=== PATIENT | female | born 1955 | race Caucasian/White ===

== ENCOUNTER 2018-01-01 14:38 | Emergency (ER) | payer BC, SELFPAY ==
[2018-01-01 14:39] VITALS: BP 117/70; PULSE 102; RESP 16; TEMP 37.3; O2SAT 99; BMI 20.5
[2018-01-01] MEDS: 0.9% Normal Saline 1,000 ML 1000 ML IV (15:29)
[2018-01-01 15:30] VITALS: BP 102/60; BP 112/59; BP 124/84; PULSE 85; PULSE 88; PULSE 95
[2018-01-01 15:39] LABS: Absolute Lymphocyte Count 1.89 X10^3/ul (0.83-4.51); Absolute Neutrophil Count 5.8 X10^3/uL (2.0-7.7); Basophil# 0.04 X10^3/uL; Basophil% 0.4 % (0-1); Eosinophil# 0.53 X10^3/uL; Eosinophils% 5.6 % (0-5); Hematocrit 37.8 % (37-47); Hemoglobin 12.2 g/dl (12.0-15.0); Lymphocyte # 1.89 X10^3/ul (4.0); Lymphocyte % 20.1 % (19-41); Mean Corp Hgb Conc 32.3 g/gl (32-36); Mean Corpuscular Hgb 28.6 pg (27.0-32.0); Mean Corpuscular Volume 88.5 fL (81-99); Mean Platelet Vol. 9.3 fl (6.2-12.0); Monocyte# 1.09 X10^3/uL; Monocyte% 11.6 % (0-10); Neutrophil # 5.82 X10^3/uL (2.7-7.7); Platelet Count 494 K/mm3 (150-450); RBC Distribution Width CV 13.6 % (11.6-14.6); RBC Distribution Width SD 43.6 fl (35.1-43.9); Red Blood Count 4.27 M/mm3 (4.2-5.4); White Blood Count 9.4 K/mm3 (4.4-11.0)
--- NOTE | 2018-01-01 15:40 | ED.VISSUMM ---
- ER Visit Summary Date of Service: 01/01/18 Chief Complaint: Weakness fatigue and diarrhea for 4 days History of Present Illness: The patient is a 62 F who has no significant past medical history nor does she have a doctor presents with generalized weakness fatigue and diarrhea for the past 4 days. She denies any ill contacts. Triage note was read. She has had intermittent diarrhea over a year not constant diarrhea for a year. She denies any blood or mucus in her diarrhea. She has not been on antibiotics recently. She denies fever, chills night sweats. She does complain of thirst, dry mouth and orthostatic symptoms. She also reports decreased urine output. She denies headache. She denies any ocular, visual or auditory symptoms. She denies any change in voice or difficulty swallowing. She denies any chest pain, palpitations or orthopnea. She denies shortness of breath, cough or dyspnea on exertion. She denies abdominal pain. She does complain of nausea without vomiting. She denies dysuria, frequency, urgency or hematuria. She reports decreased urine output. She denies any skin lesions. She reports a 5 pound weight loss since December 27. She lives with her cousin who states she is not as active and that her clothes are loose on her. She has no history of cancer. She is a non-smoker. She denies alcohol use. Physical Examination: Patient appears thin. HEENT exam is remarkable for dry mucosa and tongue. Trach is midline. Lungs are clear to auscultation. Heart is regular without murmur, gallop or rub. Abdomen is soft nontender. Bowel sounds are present normal. There is no CVA tenderness noted. She is alert oriented with a nonfocal neurologic exam. Test Results: CBC is unremarkable. BMP is marked for potassium at 3.0. Albumin is 2.8. Emergency Department Course and Treatment: Clinically she appears dehydrated. IV was established and she received 1 L of normal saline. Baseline blood work was obtained to assess renal function, electrolytes and rule out anemia since she appears to Even though she denies shortness of breath. Treatment Plan: Patient received a liter of normal saline. She received p.o. potassium, 50 mEq. She was referred to Dr. Schroeder. Disposition: Discharged to home Impression: 1. Diarrhea 2. Hypokalemia 3. Malnourished 4. Unintentional weight loss This note was generated with Dragon dictation software. It may contain incorrect words, spelling, and punctuation that were not noted in review of the chart prior to signing ED Disposition - Plan for ED Patient: Disposition: Home or Assisted Living Chief Complaint: Weakness Instructions: ED Vomiting Diarrhea Nonspecific Ad, ED Potassium Deficiency Referrals: Care Physician,No Primary [Primary Care Provider] - Anshu Schroeder MD [STAFF PHYSICIAN] - 1 Week if not improving
[2018-01-01 15:41] LABS: POSITIVE COUNT NO; POSITIVE DIFFERENTIAL NO; POSITIVE MORPHOLOGY NO
[2018-01-01 15:50] LABS: ALB/GLOB Ratio 0.6 RATIO (0.9-2.4); AST(SGOT) 12 U/L (15-37); Alanine Aminotransfer ALT/SGPT 13 U/L (13-56); Albumin, Serum 2.8 g/dL (3.2-5.0); Alkaline Phosphatase 80 U/L (45-117); Anion Gap 10 (5-15); BUN 9 mg/dL (7-18); BUN/Creat Ratio 11.4 RATIO (10-20); Calcium,Total 8.7 mg/dL (8.5-10.1); Chloride 102 mmol/L (98-107); Creatinine, Serum 0.79 mg/dL (0.55-1.02); EST Glomerular Filtration Rate 78 mL/min (>60); Est Glom Filt Rate - Afr Amer 95 mL/min (>60); Estimated Creatinine Clearance 51.32 ml/min; Globulin 4.4 g/dL (2.2-4.2); Glucose 106 mg/dL (74-106); Protein, Total 7.2 g/dL (6.4-8.2); Sodium Level 140 mmol/L (136-145)
[2018-01-01 16:41] VITALS: BP 128/66; PULSE 45; RESP 16; O2SAT 97
[2018-01-01 17:52] VITALS: PULSE 97; RESP 16; O2SAT 100
== END 2018-01-01 17:52 | disposition home or self-care (01) ==
PROVIDERS: Emergency Provider Emergency Medicine
DX: R19.7 Diarrhea, unspecified (principal); E87.6 Hypokalemia; E46 Unspecified protein-calorie malnutrition; R63.4 Abnormal weight loss; Z79.82 Long term (current) use of aspirin
CPT/HCPCS: 80053; 85025; 96360; 99284; J7030; A4216

== ENCOUNTER → 2018-01-04 15:20 | Outpatient (CLI) | payer BC, SELFPAY ==
[2018-01-04 18:35] LABS: ALB/GLOB Ratio 0.5 RATIO (0.9-2.4); AST(SGOT) 13 U/L (15-37); Alanine Aminotransfer ALT/SGPT 17 U/L (13-56); Albumin, Serum 2.3 g/dL (3.2-5.0); Alkaline Phosphatase 77 U/L (45-117); Anion Gap 9 (5-15); BUN 10 mg/dL (7-18); BUN/Creat Ratio 13.2 RATIO (10-20); Calcium,Total 8.2 mg/dL (8.5-10.1); Chloride 101 mmol/L (98-107); Creatinine, Serum 0.76 mg/dL (0.55-1.02); EST Glomerular Filtration Rate 82 mL/min (>60); Est Glom Filt Rate - Afr Amer 99 mL/min (>60); Globulin 4.4 g/dL (2.2-4.2); Glucose 104 mg/dL (74-106); Magnesium 2.1 mg/dL (1.6-2.6); Potassium 3.4 mmol/L (3.5-5.1); Prealbumin 5.9 mg/dL (20.0-40.0); Protein, Total 6.7 g/dL (6.4-8.2); Sodium Level 140 mmol/L (136-145); Thyroid Stim Hormone (TSH) 2.37 uIU/mL (0.358-3.74)
[2018-01-05 09:06] LABS: Vitamin B12 > 2000 pg/mL (211-911); Vitamin D,25 Hydroxy 36.7 ng/mL (29.95-100.01)
== END ==
PROVIDERS: Visit Provider Family Medicine
DX: E88.09 Other disorders of plasma-protein metabolism, not elsewhere classified (principal); E87.6 Hypokalemia; R19.7 Diarrhea, unspecified; R53.83 Other fatigue
CPT/HCPCS: 36415; 80053; 82306; 82607; 83735; 84134; 84443

== ENCOUNTER 2018-01-08 07:31 | Day surgery (SDC) | payer BC, SELFPAY ==
--- NOTE | 2018-01-08 | COLBX_PTH ---
PATIENT: JERSON MURPHY LOC: EN U#:[id number] AGE/SX: 62/F ROOM: RE01/08/[address]: Dr. Sha Salamanca MD : [id number] BED: DIS: 01/08/2018 SPEC #: [id number] RECD: 01/08/18 14:34 STATUS: VINNY HEMALATHA #: [id number] JESS: 01/08/18 00:[address]: Sha Salamanca DEPT: SURGICAL PATHOLOGY RECD BY: Tito Huffman ENTERED: 01/08/18 14:34 SP TYPE: COLON BX OTHR DR: Dr. Porfirio Donato MD Tissues: A - Ileum, NOS B - COLON BIOPSY C - Rectum, NOS Procedures: Surgery Specimen Level IV HEADER OPERATION: Colonoscopy, EGD PRE-OP DIAGNOSIS: Rectal bleeding; weight loss TISSUE SUBMITTED: A ? Terminal ileum biopsies, B ? Random colon biopsies, C ? Rectal polyp MICROSCOPIC DIAGNOSIS A. Terminal ileum, biopsy: Fragments of small intestinal mucosa, no pathologic diagnosis. B. Colon, random biopsy: Chronic active colitis. See microscopic description and comment. C. Rectal polyp, biopsy: Tubular adenoma arising in the background of chronic active colitis. SJ:helga 01/09/18 COMMENT B. The findings are consistent with inflammatory bowel disease (ulcerative colitis). Correlation with clinical, endoscopic findings and appropriate follow up are necessary. Case has been reviewed in consultation with Dr. Fernandez who concurs with the above diagnosis. IDC:AM MICROSCOPIC DESCRIPTION Slides are reviewed. B. The specimen shows fragments of colonic mucosa with acute and chronic inflammatory cell infiltrates in the lamina propria, cryptitis, crypt abscesses and glandular distortion. There is no evidence of granuloma or dysplasia. GROSS DESCRIPTION A - Received in fixative is one container labeled with the patient's name and designated terminal ileum biopsy. The specimen consists of multiple irregular fragments of light phillip soft tissue that in aggregate measure 1.5 x 0.3 x 0.1 cm. The specimen is totally submitted in one cassette. B - Received in fixative is one container labeled with the patient's name and designated random colonic biopsy. The specimen consists of multiple irregular fragments of light phillip soft tissue that in aggregate measure 1.5 x 0.5 x 0.1 cm. The specimen is totally submitted in one cassette. C - Received in fixative is one container labeled with the patient's name and designated rectal polyp. The specimen consists of a piece of phillip-pink polyp measuring 0.7 x 0.5 x 0.3 cm. The specimen is totally submitted in one cassette. / SJ:rg 01/08/18 TC:2 CPT: 78937 x3
[2018-01-08 07:53] VITALS: BP 99/52; PULSE 89; RESP 16; TEMP 37.3; O2SAT 100; BMI 18.9
--- NOTE | 2018-01-08 08:46 | PCM.OPRPT ---
Problem List (1) Positive fecal occult blood test Status: Acute (2) Anemia Status: Acute Qualifiers: Anemia type: unspecified type (3) Diarrhea Status: Acute Qualifiers: Qualified Code(s): R19.7 - Diarrhea, unspecified (4) Fatigue Status: Acute Qualifiers: Qualified Code(s): R53.83 - Other fatigue Report of Operation Date of Procedure: 01/08/18 Pre-Operative Diagnosis: Are 19.5 Hemoccult positive stools. D 64.9 anemia unspecified. R 19.7 diarrhea unspecified. R 53.83 fatigue Post-Operative Diagnosis: Same Surgery/Procedure Performed:: 1. Esophagogastroduodenoscopy. 2. Colonoscopy with polypectomy and random colonic biopsies and random terminal ileum biopsies Description of Surgical Findings:: Pancolitis consistent with ulcerative colitis from cecum to rectum sparing terminal ileum Description of Procedure: Patient was brought into the endoscopy suite. Back of her throat was sprayed with benzocaine spray. Bite-block was placed. Graded anesthesia was given. Olympus scope was inserted in the back of the oropharynx and directed down through the esophagus into the stomach and into the duodenum without difficulty operative findings: 1. Duodenum: Normal appearance no mass lesions no ulcerations. 2. Stomach: Normal appearance no mass lesions no ulcerations. 3. Esophagus: Normal appearance no mass lesions no signs of ulcerations. Upper scope was entirely normal. Colonoscope was then inserted into the rectum and directed through the sigmoid colon, descending colon, transverse colon, ascending colon, to the cecum, and into the terminal ileum. Operative findings: 1. Terminal ileum: Normal appearance biopsies were obtained the terminal ileum itself appeared normal and I do not think that there was any active inflammation here. 2. Cecum: Severe colitis identified random biopsies obtained 3. A sending colon: Severe colitis identified random colon biopsies obtained 4. Transverse colon: Severe colitis identified random colon biopsies obtained 5. Descending colon: Severe colitis identified random colon biopsies obtained 6. Sigmoid colon: Severe colitis identified random colon biopsies obtained 7. Rectum: Severe colitis identified polyp identified and removed with snare cautery technique and brought back to the channel the scope. It is obvious this patient has more than likely ulcerative colitis we are going to start her on Asacol and more likely have to obtain a GI consultation for further treatment down the road.
[2018-01-08 08:51] VITALS: BP 84/61; BP 99/52; PULSE 87; RESP 16; TEMP 36.6; O2SAT 96
[2018-01-08 08:55] VITALS: BP 89/51; BP 99/52; PULSE 80; RESP 16; O2SAT 97
[2018-01-08 09:00] VITALS: BP 88/63; BP 99/52; PULSE 80; RESP 16; O2SAT 96
[2018-01-08 09:05] VITALS: BP 107/72; BP 98/65; BP 99/52; PULSE 92; RESP 16; TEMP 36.8; O2SAT 98; O2SAT 99
[2018-01-08 10:12] VITALS: BP 99/52
== END 2018-01-08 10:13 | disposition home or self-care (01) ==
LOC: EN 07:32 → AC 07:37
PROVIDERS: Family Provider Family Medicine; PCP Family Medicine; Visit Provider Surgery
PROC: 0DJD8ZZ Inspection of Lower Intestinal Tract, Via Natural or Artificial Opening Endoscopic (ICD-10-PCS; CPT 45378; principal; 2018-01-08 08:25)
DX: D12.8 Benign neoplasm of rectum (principal); K52.9 Noninfective gastroenteritis and colitis, unspecified; D64.9 Anemia, unspecified; R19.5 Other fecal abnormalities; R19.7 Diarrhea, unspecified; R53.83 Other fatigue; E88.09 Other disorders of plasma-protein metabolism, not elsewhere classified; Z80.0 Family history of malignant neoplasm of digestive organs; Z79.82 Long term (current) use of aspirin
CPT/HCPCS: 43235; 45380; 88305; J7120

== ENCOUNTER → 2018-01-25 13:59 | Outpatient (CLI) | payer BC, SELFPAY ==
[2018-01-25 15:58] LABS: ALB/GLOB Ratio 0.8 RATIO (0.9-2.4); AST(SGOT) 10 U/L (15-37); Alanine Aminotransfer ALT/SGPT 19 U/L (13-56); Albumin, Serum 3.1 g/dL (3.2-5.0); Alkaline Phosphatase 58 U/L (45-117); Anion Gap 7 (5-15); BUN 28 mg/dL (7-18); BUN/Creat Ratio 38.7 RATIO (10-20); Calcium,Total 8.6 mg/dL (8.5-10.1); Chloride 106 mmol/L (98-107); Creatinine, Serum 0.72 mg/dL (0.55-1.02); EST Glomerular Filtration Rate 86 mL/min (>60); Est Glom Filt Rate - Afr Amer 104 mL/min (>60); Globulin 3.7 g/dL (2.2-4.2); Glucose 104 mg/dL (74-106); Protein, Total 6.8 g/dL (6.4-8.2); Sodium Level 142 mmol/L (136-145)
== END ==
PROVIDERS: Family Provider Family Medicine; PCP Family Medicine; Visit Provider Family Medicine
DX: E88.09 Other disorders of plasma-protein metabolism, not elsewhere classified (principal)
CPT/HCPCS: 36415; 80053; 84134

== ENCOUNTER → 2018-03-03 10:56 | Outpatient (CLI) | payer BC, SELFPAY ==
[2018-03-03 12:32] LABS: AST(SGOT) 21 U/L (15-37); Alanine Aminotransfer ALT/SGPT 30 U/L (13-56); Albumin, Serum 3.4 g/dL (3.2-5.0); Alkaline Phosphatase 91 U/L (45-117); Bilirubin, Direct 0.07 mg/dL (0.00-0.30); Globulin 3.8 g/dL (2.2-4.2); Lipase 151 U/L (73-393); Protein, Total 7.2 g/dL (6.4-8.2)
== END ==
PROVIDERS: Family Provider Family Medicine; PCP Family Medicine
DX: K51.90 Ulcerative colitis, unspecified, without complications (principal)
CPT/HCPCS: 36415; 80076; 83690

== ENCOUNTER 2018-04-13 22:57 | Emergency (ER) | payer BC, SELFPAY ==
[2018-04-13 22:58] VITALS: BP 142/87; PULSE 85; RESP 17; TEMP 37.4; O2SAT 98; BMI 21.7
--- NOTE | 2018-04-13 23:56 | ED.VISSUMM ---
- ER Visit Summary Date of Service: 04/13/18 Chief Complaint: Difficulty urinating History of Present Illness: The patient is a 62 F with a history of prior urinary retention who presents with difficulty voiding. She noted that it was difficult to void throughout the day and she was only able to go small amounts. Last time she was able to urinate at all was about 2-1/2 hours ago and that was only a small amount. She complains of worsening suprapubic abdominal pressure and pain. She has chronic diarrhea but review of systems otherwise negative. No fevers. 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 Physical Examination: Afebrile vitals are unremarkable moist mucous membranes Patient appears very uncomfortable Heart regular rate and rhythm Lungs are clear Abdomen soft she is tender to palpation lower abdomen and she is distended Alert Test Results: Not indicated Emergency Department Course and Treatment: Patient had a Gill catheter placed with marked relief of symptoms. She had about 1100 cc of urine out. Nursing did note bladder prolapse when they placed the catheter. Patient will be discharged with a leg bag. She was referred to urology. She understands to return for new or worsening symptoms and was discharged home. Treatment Plan: [] Disposition: Discharge Impression: Urinary retention This note was generated with [employer] dictation software. It may contain incorrect words, spelling, and punctuation that were not noted in review of the chart prior to signing ED Disposition - Plan for ED Patient: Chief Complaint: Complaint Referrals: Porfirio Donato MD [Primary Care Provider] -
--- NOTE | 2018-04-13 23:58 | ED.DEP ---
ED Disposition - Plan for ED Patient: Chief Complaint: Complaint Instructions: ED Retention Urinary Female Referrals: Porfirio Donato MD [Primary Care Provider] - Rocío Hilario MD [STAFF PHYSICIAN] -
== END 2018-04-14 00:33 | disposition home or self-care (01) ==
PROVIDERS: Emergency Provider Emergency Medicine; Family Provider Family Medicine; PCP Family Medicine
DX: R33.9 Retention of urine, unspecified (principal)
CPT/HCPCS: 51702; 99283

== ENCOUNTER → 2018-04-18 10:54 | Outpatient (CLI) | payer BC, SELFPAY ==
--- NOTE | 2018-04-18 10:57 | US_ITS ---
STUDY: RENAL ULTRASOUND - COMPLETE REASON FOR EXAM: Female, 62 years old. Urinary retention TECHNIQUE: Transverse and longitudinal imaging of the kidneys and bladder was obtained using real-time ultrasound. COMPARISON: None. FINDINGS: RIGHT KIDNEY: The right kidney is normal in location. The right kidney measures 10.0 x 3.7 x 4.5 cm. There is cortical thinning. The renal cortex measures 3-4 mm (obtained in the sagittal plane mid pole from the capsule to the pyramid- normal is greater than or equal to 6 mm). There is a cyst in the lower pole measuring 1.7 cm. There is no dilatation of the collecting system. LEFT KIDNEY: The left kidney is normal in location. The left kidney measures 10.3 x 4.5 x 4.1 cm. The renal cortex is normal in appearance. The renal cortex measures 8-9 mm (obtained in the sagittal plane mid pole from the capsule to the pyramid- normal is greater than or equal to 6 mm). There is no demonstrated renal mass. There is no dilatation of the collecting system. BLADDER: The urinary bladder is decompressed with a Gill catheter present. US/Kidney and Bladder IMPRESSION: The right kidney is small with cortical thinning. The left kidney is normal in size. There is no hydronephrosis bilaterally. Electronically Signed: Jessica Hale MD at 0:04 EDT Tel Direct: [phone], Service support ,
== END ==
LOC: US 10:56
PROVIDERS: Family Provider Family Medicine; PCP Family Medicine; Visit Provider Urology
DX: R33.9 Retention of urine, unspecified (principal)
CPT/HCPCS: 76770

== ENCOUNTER 2018-12-19 00:41 | Emergency (ER) | payer BC, SELFPAY ==
[2018-12-19 00:44] VITALS: BP 152/91; PULSE 89; RESP 16; TEMP 37.2; O2SAT 98; BMI 23.1
--- NOTE | 2018-12-19 01:52 | ED.VISSUMM ---
- ER Visit Summary Date of Service: 12/19/18 Chief Complaint: Vaginal bleeding History of Present Illness: The patient is a 63 F who presents with vaginal bleeding onset yesterday. Patient had a pessary placed 2 months ago for bladder prolapse making it difficult for her to urinate on her own. Yesterday she began having vaginal bleeding. She saw her doctor and the pessary was removed. At that point the bleeding had stopped. However earlier this evening it started up again. Patient states it is bright red, copious, and it feels like she is urinating. She denies any pain. She denies any dizziness or lightheadedness. She is just concerned about the bleeding. 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 She is on Humira and prednisone. No blood thinners at this time. Physical Examination: Patient is well-nourished well-developed lying in bed in no distress. Skin is warm and dry, pink. Patient has bright red blood coming from her vagina. On examination, bladder is prolapsed. Reducing it through the vagina results and bright red blood coming out. Speculum exam shows large amount of bright red blood and clots. After suctioning the mouth, there is a small laceration noted on the right mid vaginal wall with no active bleeding. Questionable if this is also a fistula. No obvious source of the brisk bleeding noted and after suctioning, bleeding stopped. No lacerations noted to the external genitalia. Test Results: Abnormal Lab Results 12/19/18 02:40 Hgb 11.8 L Hct 36.9 L Emergency Department Course and Treatment: Patient presented with heavy vaginal bleeding, bright red in color. No external lesions noted to explain the bleeding. During the speculum exam, large amount of red blood and clots were suctioned and removed from the vaginal vault. Afterwards, bleeding stopped. There was one small area that looked concerning for a laceration on the right vaginal wall, however no blood was noted coming from it. There was no other obvious source of the bleeding. Once the vaginal vault was evacuated of blood and clots, patient had no further bleeding. H&H was performed to establish a baseline in case patient has recurrence of bleeding. Patient was monitored for a period of time and use the bathroom twice during this period of time and had no further bleeding. She is going to follow-up with her doctor tomorrow for a reevaluation. She will return if any recurrence of the heavy bleeding. Patient discharged home in improved condition. Treatment Plan: [] Disposition: [] Impression: Vaginal bleeding, suspected vaginal tear from pessary This note was generated with [employer] dictation software. It may contain incorrect words, spelling, and punctuation that were not noted in review of the chart prior to signing ED Disposition - Plan for ED Patient: Disposition: Home or Assisted Living Referrals: Porfirio Donato MD [Primary Care Provider] -
[2018-12-19 04:29] LABS: Hematocrit 36.9 % (37-47); Hemoglobin 11.8 g/dl (12.0-15.0)
--- NOTE | 2018-12-19 04:44 | ED.RN ---
SEE DOWNTIME PAPERWORK FROM 0200 UNTIL [id number]
== END 2018-12-19 03:07 | disposition home or self-care (01) ==
PROVIDERS: Emergency Provider Emergency Medicine; Family Provider Family Medicine; PCP Family Medicine
DX: N93.9 Abnormal uterine and vaginal bleeding, unspecified (principal); K51.90 Ulcerative colitis, unspecified, without complications; Z79.52 Long term (current) use of systemic steroids; Z79.899 Other long term (current) drug therapy
CPT/HCPCS: 85014; 85018; 99281

== ENCOUNTER 2018-12-19 08:46 | Emergency (ER) | payer BC, SELFPAY ==
[2018-12-19 00:44] VITALS: BMI 23.1
[2018-12-19 08:47] VITALS: BP 134/103; PULSE 88; RESP 16; TEMP 36.7; O2SAT 97; BMI 22.8
[2018-12-19 09:18] LABS: Hematocrit 34.7 % (37-47)
--- NOTE | 2018-12-19 10:51 | ED.DCSUM_ITS ---
History of Present Illness Chief Complaint: Vag Bleeding Informant: Patient Onset: Today Context: Sudden Onset - when got up from toilet and using it this AM Timing: Continuous Quality: bleeding and clots Location: vaginal Current Severity: Severe Maximum Severity: Severe Worsened by: nothing in particular Relieved by: nothing Associated Symptoms: none. no pain. Narrative: After having spontaneous onset of vaginal bleeding and then having her pessary removed a couple days ago in the office by Dr. Hilario, patient was seen here last night for heavy vaginal bleeding. It stopped and was discharged home after seeing a laceration. She states she tried to see her urologist today but she was unavailable and out of the office so she was directed by office staff to come to the emergency department. She has no pain. She feels malaise but has no other specific new symptoms. - Past Medical History (1) Anemia Status: Chronic Past Medical History - Allergies and Home Meds Allergies/Adverse Reactions: Allergies codeine Allergy (Verified 12/19/18 08:49) Hives Penicillins [PCN] Allergy (Verified 12/19/18 08:49) Hives Primary Care Physician: Porfirio Donato MD [Primary Care Provider] - Ruthie Connell MD [STAFF PHYSICIAN] - As soon as possible Surgical History: hysterectomy, - - Bladder sling Lives: Alone Smoking Status: Current every day smoker Review of Systems General: Reports: Malaise. Denies: Chills, Fever, Sweats Eyes: Denies: Visual changes - bilaterally, Diplopia ENT: Denies: Rhinorrhea, Sore throat Cardiovascular: Denies: Chest pain, Palpitations Respiratory: Denies: Dyspnea, Cough, Dyspnea on exertion Gastrointestinal: Denies: Abdominal pain, Nausea, Vomiting, Diarrhea, Melena, Hematochezia Genitourinary: Reports: - - Vaginal bleeding. Denies: Dysuria, Hematuria, Frequency Musculoskeletal: Denies: Back pain, Extremity Pain Skin: Denies: Rash, Wounds Neurological: Denies: Headache, Weakness, Numbness Physical Exam Vital Signs/Narrative: Vital Signs Temp Pulse Resp BP Pulse Ox 12/19/18 08:47 98.1 F 88 16 134/103 H 97 Inital Vital Signs reviewed: Yes General: Well nourished, Well developed, No Acute Distress Head: Normocephalic, Atraumatic Eyes: Perrl, EOMI ENT: Moist mucous membranes, No rhinorrhea Neck: Supple, Nontender Cardiovascular: Regular rate, Regular rhythm, No murmurs Respiratory: No distress, CTA bilaterally, Chest nontender Abdomen: Soft, Nontender, Nondistended, Normal bowel sounds : - - Vaginal vault full of blood and clots. It was evacuated using Yankauer suction and large cotton swabs. It eventually became evident that there was a small 0.5 cm mucosal laceration in the right mid-deep vaginal vault that had arteriolar bleeding present and active. Back: Nontender, Normal Inspection Extremities: Nontender, No edema Skin: Normal color, No rash Neurological: Alert, Oriented x3, Cranial nerves II-XII grossly intact, Normal Strength, Normal Sensation Psychological: Normal Mood, - - Anxious Diagnostic/Tx/Re-eval Laboratory Tests 12/19/18 12/19/18 Range/Units 14:35 09:10 Hgb 10.5 L 11.0 L (12.0-15.0) g/dl Hct 33.3 L 34.7 L (37-47) % - Medical Decision Making I repeated her H&H, her hemoglobin went down to 0.8 g, her vital signs remained stable. During the initial pelvic exam, we used a new canister of sterile 1 inch plain gauze and pack the vaginal vault beyond the laceration, and left the string hanging out and observe the patient. Initially, it seemed to be stable and the gauze did not turn red/grossly bloody. I discussed with Dr. Connell who was on-call for unassigned gynecology, who advised that we could send the pa tient over to her office either tomorrow or today, if there is recurrent bleeding. When we stood the patient up, it was evident that the bleeding had restarted. Prior to being able to discharge her, she felt lightheaded. Therefore we kept her in the bed and I discussed with Dr. Connell who saw the patient in the emergency department and repaired the laceration successfully. I ordered an IV with a liter fluid bolus. Just after starting that, the patient was helped to a bedside commode where in the presence of nursing, she had a syncopal episode after feeling lightheaded. She was not hypotensive but she was pale. IV fluids were given and she was allowed to rest and she recovered from the event uneventfully otherwise. After the fluids we redrew her H&H, it is 10.5 which is down 0.5 g. This is reassuring, no blood transfusion will be indicated. We did orthostatics and she was lightheaded and a borderline positive with regards to her blood pressure dropping 20 points systolic. She was given another bag of IV fluids, she felt better, and was discharged home, she is following up in the office tomorrow. Her bleeding remained well controlled after being sutured. ED Disposition - Plan for ED Patient: Disposition: Home or Assisted Living Diagnosis: Vaginal laceration, Orthostatic syncope Instructions: VAGINAL TEAR (Non-obstetric) Referrals: Ruthie Connell MD [STAFF PHYSICIAN] - 1 Day Rocío Hilario MD [STAFF PHYSICIAN] - Keep Khris appointment
[2018-12-19 11:28] VITALS: BP 113/76; PULSE 76; RESP 18; O2SAT 100
--- NOTE | 2018-12-19 11:29 | ED.RN ---
ATTEMPTED TO D/C PT. PT HAS BLOOD CLOTS COMING OUT OF HER VAGINA AND REPORTS BEING LIGHT HEADED. PT LAID BACK DOWN AND DR. STALEY INFORMED.
--- NOTE | 2018-12-19 11:45 | NURSING ---
DR CAMPUZANO WITH PATIENT
[2018-12-19] MEDS: 0.9% Normal Saline 1,000 ML 999 ML IV ×2 (12:00→14:58)
[2018-12-19 14:46] VITALS: BP 101/66; BP 111/75; BP 91/64; PULSE 66; PULSE 89; PULSE 98; RESP 17; O2SAT 97
[2018-12-19 14:53] LABS: Hematocrit 33.3 % (37-47); Hemoglobin 10.5 g/dl (12.0-15.0)
[2018-12-19 17:04] VITALS: BP 125/67; PULSE 78; RESP 16; O2SAT 97
--- NOTE | 2018-12-19 17:43 | HP.PCM_ITS ---
History of Present Illness Date of Admission: 12/19/18 Chief Complaint: vaginal bleeding The patient is a 63 -year-old female who has a history of pelvic prolapse that was seeing Dr. Hilario. She had a pessary placed and was doing well w/ it then started some bleeding on 12/17/18 and went to her office. Dr. Hilario removed pessary and the patient reported that she was told she didn't have any lacerations or active bleeding. The patient was then fine when about her normal activities, when she got home from work last night she had bright red vaginal bleeding. She went to the emergency room and was evaluated and found to be stable and was sent home. However, early this morning the bright red bleeding returned and seemed to be increased and the patient saturated through her underclothing and it was running down her legs and she returned to the emergency room. The emergency room physician then packed the patient's vagina lately and she expelled the vaginal packing with the clot. I was then called to evaluate the patient. patient states she is very tired and hungry. She denies any fevers or chills. She denies any for sexual activity that would've caused a vaginal laceration. She denies any dysuria or hematuria. I was asked to consult and treat the patient by Dr. Benitez in the emergency room physician. I had a [id number] conversation with him after the evaluation about the follow-up and plan for this patient after discharge. [] Past Medical History Past Medical History (Chronic Problems): Chronic Problems (Last Reviewed 01/15/18 @ 15:03 by Ju Bullock) Anemia (Chronic) Medical History: Medical History (Last Reviewed 01/15/18 @ 15:03 by Ju Bullock) Hx of hysterectomy (Acute) Z90.710 2009 Anemia (Chronic) D64.9 Abdominal pain (Acute) R10.9 Positive fecal occult blood test (Acute) R19.5 Hypoalbuminemia (Acute) E88.09 Blood in stool (Acute) K92.1 Family history of colon cancer (Acute) Z80.0 uncle- father's side Rectal bleeding (Acute) K62.5 Fatigue (Acute) R53.83 Hypokalemia (Acute) E87.6 Diarrhea (Acute) R19.7 Allergies codeine Allergy (Verified 06/26/19 08:49) Hives Penicillins [PCN] Allergy (Verified 12/19/18 08:49) Hives Home Medications: Ambulatory Orders Medication Instructions Recorded cholecalciferol (vitamin D3) 2,000 2,000 unit PO QDAY 01/05/18 unit capsule mecobalamin (vitamin B12) 5,000 5,000 mcg PO DAILY 01/05/18 mcg disintegrating tablet multivitamin tablet 1 tab PO QAM 01/05/18 Adalimumab [Humira] 40 mg SUBCUT QWEEK 12/19/18 Prednisone 5 mg PO DAILY 12/19/18 Surgical History: Surgical History (Last Reviewed 01/15/18 @ 15:03 by Ju Bullock) Hx of tonsillectomy (Acute) Z90.89 Hx of nasal polypectomy (Acute) Z98.890, Z87.09 2003 History of bladder repair surgery (Acute) Z98.890 2009 Surgical History: hysterectomy, - - Bladder sling Lives: Alone Smoking Status: Current every day smoker Review of Systems Constitutional: Denies: Anorexia, Chills, Fever Cardiovascular: Reports: Light Headedness - with standing. Denies: Chest Pain, Edema Respiratory: Denies: Shortness of Breath Gastrointestinal: Denies: Abdominal Pain Genitourinary: Reports: Retention - not acute. Denies: Dysuria, Frequency, Hematuria, Hesitancy, Urgency Gynecological: Denies: Vaginal discharge, Vaginal itching Hematologic/ Lymphatic: Denies: Anemia, Easy Bruising, Easy Bleeding, Petechiae VTE Information - Inpt Only VTE Present on Admission: No VTE Pharm Prophylaxis ordered?: No - Physical Exam General: Alert, Cooperative, No apparent distress Abdomen: Soft, Non-Distended, - - GYN_normal external genitalia. Attenuated perineal body. Normal mons pubis. normal urethra without caruncle. Cervix and uterus are surgically absent. No adnexal masses or tenderness. Vagina shows flattened rugae with small amount of blood in the vault when I examine her. There is approximately a 0.5 cm laceration on the left vaginal sidewall at 9:00 skilled nursing up the vagina that's oozing slowly some dark red blood. Remainder the vaginal cuff is intact. Extremities: No edema Skin: No rashes Psych/Mental Status: Normal Affect, Appropriate Vital Signs Temp Pulse Resp BP Pulse Ox 98.1 F 78 16 125/67 H 97 12/19/18 08:47 12/19/18 17:04 12/19/18 17:04 12/19/18 17:04 12/19/18 17:04 Oxygen Delivery Method Room Air Weight: 49.442 kg Body Mass Index (BMI) 22.8 Laboratory Tests Past 24 Hrs 12/19/18 12/19/18 09:10 14:35 Hgb 11.0 L 10.5 L Hct 34.7 L 33.3 L Assessment/Plan All Active Problems (Last Reviewed 01/15/18 @ 15:03 by Ju Bullock) Vaginal laceration (Acute) Orthostatic syncope (Acute) Hx of tonsillectomy (Acute) Hx of nasal polypectomy (Acute) History of bladder repair surgery (Acute) Hx of hysterectomy (Acute) Abdominal pain (Acute) Positive fecal occult blood test (Acute) Hypoalbuminemia (Acute) Blood in stool (Acute) Family history of colon cancer (Acute) Rectal bleeding (Acute) Fatigue (Acute) Hypokalemia (Acute) Diarrhea (Acute) 63-year-old female with vaginal laceration likely from pessary. She's failed conservative therapy with pressure and packing. At this point I discussed with the patient that I recommend placing a suture over the area. Patient is in agreement with plan. In addition, she has some packing placed and will require follow-up in my office tomorrow. She may return or call if bleeding increases acutely, but it seems to our to be significantly slowed from the packing that was done previously. Patient is in agreement comfortable with the plan. I would recommend she avoid heavy lifting for the next 48 hours.
--- NOTE | 2018-12-19 17:57 | OP.PCM_ITS ---
Report of Operation Date of Procedure: 12/19/18 Pre-Operative Diagnosis: vaginal laceration with acute vaginal bleeding Post-Operative Diagnosis: same Surgery/Procedure Performed:: vaginal laceration repair instant powder supervisor: None Type of Anesthesia:: Local Special Medications: none Specimen's removed: none Drains: none Estimated Blood Loss (mL): 0 Fluids Replaced: 0 Description of Procedure: the patient was seen in the emergency room. 0.5 cm vaginal laceration was iden tified. With the speculum in the vagina, 1 cc of 1% Xylocaine without epinephrine solution was injected into the area. A 3-0 Vicryl Rapide was then used to oversew the area with the single bejpsc-[id number] stitch. Hemostasis was assured. One bottle of half-inch plain gauze packing was placed in the vagina. The patient tolerated the procedure well. She is to return to my office tomorrow for removing of the vaginal packing. Grafts/Implants Used: none - Complications none
== END 2018-12-19 17:06 | disposition home or self-care (01) ==
PROVIDERS: Emergency Provider Emergency Medicine; Family Provider Family Medicine; PCP Family Medicine
DX: R55 Syncope and collapse (principal); S31.41XD Laceration without foreign body of vagina and vulva, subsequent encounter; W26.9XXD Contact with unspecified sharp object(s), subsequent encounter
CPT/HCPCS: 57200; 51702; 85014; 85018; 96360; 96361; 99285; J7030; A4216

== ENCOUNTER 2019-01-03 17:54 | Emergency (ER) | payer BC, SELFPAY ==
[2019-01-03 17:55] VITALS: BP 133/92; PULSE 100; RESP 16; TEMP 36.9; O2SAT 99; BMI 22.8
--- NOTE | 2019-01-03 18:26 | ED.DEP ---
ED Disposition - Plan for ED Patient: Instructions: Caring for Your Leg Bag, Gill Catheter, Care Referrals: Porfirio Donato MD [Primary Care Provider] - Rocío Hilario MD [STAFF PHYSICIAN] - As Needed
--- NOTE | 2019-01-03 18:27 | ED.VISSUMM ---
- ER Visit Summary Date of Service: 01/03/19 Chief Complaint: [Requesting new Gill catheter] History of Present Illness: The patient is a 63 F [presents to the emergency department requesting a new catheter. Patient has history of urinary retention due to bladder prolapse. Patient states that the balloon broke today and her catheter fell out. Patient is requesting a new catheter be placed. Patient otherwise has no complaints. Patient has history of ulcerative colitis as well as history of hysterectomy and history of bladder suspension. Patient normally wears a pessary.] Physical Examination: [HEENT-PERRLA, EOMI. Cranial nerves II through XII grossly intact. TMs clear. Mucous membranes moist. No adenopathy. Cardiovascular-regular rate and rhythm without murmur or ectopy Lungs-clear to auscultation, chest wall stable without crepitus or subcu emphysema Abdomen-normoactive bowel sounds, soft, nontender, no rebound or rigidity, no peritoneal signs. Extremities-intact ?4, normal range of motion, normal pulses, atraumatic] Test Results: [None indicated Emergency Department Course and Treatment: [Gill catheter placed] Treatment Plan: [Follow up with urologist as needed] Disposition: [Discharged home stable condition] Impression: [Gill catheter replaced] This note was generated with Fitting[employer] dictation software. It may contain incorrect words, spelling, and punctuation that were not noted in review of the chart prior to signing ED Disposition - Plan for ED Patient: Instructions: Caring for Your Leg Bag, Gill Catheter, Care Referrals: Rocío Hilario MD [STAFF PHYSICIAN] - As Needed Porfirio Donato MD [Primary Care Provider] -
[2019-01-03 19:10] VITALS: BP 137/81; PULSE 84; RESP 18
== END 2019-01-03 19:15 | disposition home or self-care (01) ==
LOC: ED 18:45
PROVIDERS: Emergency Provider Emergency Medicine; Family Provider Family Medicine; PCP Family Medicine
DX: R33.8 Other retention of urine (principal); N81.10 Cystocele, unspecified
CPT/HCPCS: 51702; 99283

== ENCOUNTER → 2019-02-22 | Outpatient (CLI) | payer BC, SELFPAY | END | disposition home or self-care (01) | PROVIDERS: Family Provider Family Medicine; PCP Family Medicine; Referring Provider Otolaryngology; Visit Provider Otolaryngology | DX: B37.9 Candidiasis, unspecified (principal) | CPT/HCPCS: 87070; 87205 ==

== ENCOUNTER → 2020-01-28 | Outpatient (CLI) | payer BC, SELFPAY ==
--- NOTE | 2020-01-28 10:08 | NM_ITS ---
CLINICAL: 64-year-old female with reported history of low back discomfort and apparent sacral radiographic abnormality. THREE PHASE PELVIS - WHOLE BODY RADIONUCLIDE 99m Tc MDP BONE SCINTIGRAPHY COMPARISON: None available FINDINGS: Following the intravenous administration of 25.6 mCi of 99m Tc MDP, bone images reveal: 1. The flow and immediate static blood pool acquisitions of the pelvis demonstrate normal arterial and venous phase distribution of the radiopharmaceutical to the bilateral hemipelvis. 2. Delayed projections demonstrate focal increased uptake noted in the mid cervical spine posteriorly on the left, first lumbar vertebra posteriorly on the left, fifth lumbar vertebra posteriorly on the right, the left wrist, knees bilaterally, lateral glenohumeral compartment of the right shoulder. 3. A photopenic abnormality is demonstrated in the lateral proximal tibial metaphysis. 4. The remaining skeletal structures are scintigraphically unremarkable with normal-appearing renal images and urinary bladder activity identified. NM/Bone Scan Three Phase IMPRESSION: 1. Increased radiopharmaceutical concentration identified in the cervical, lumbar spine, left wrist, both knees, the right shoulder is most consistent with degenerative arthritis. 2. Photopenia defined in the lateral proximal tibial metaphysis may represent a component of avascular necrosis. Plain film radiography correlation is recommended. 3. Meticulous attention paid to the sacrum, coccyx demonstrates no evidence of trauma-fracture on the current examination. Electronically Signed: Geoff Hess DO at 22:54 EDT Tel , Service support ,
== END | disposition home or self-care (01) ==
LOC: NM 10:04
PROVIDERS: PCP Family Medicine; Referring Provider Nurse Practitioner Acute Care; Visit Provider Nurse Practitioner Acute Care
DX: M53.3 Sacrococcygeal disorders, not elsewhere classified (principal)
CPT/HCPCS: 78315

== ENCOUNTER 2020-08-12 08:57 | Outpatient (RCR) | payer BC, SELFPAY ==
--- NOTE | 2020-08-17 15:29 | HP.OTFCE_ITS ---
Floor (Occasional 1-33% of Day): 20# Floor (Frequent 34-66% of Day): 10# Floor (Constant 67-100% of Day): NA Floor PDL: Light Knee (Occasional 1-33% of Day): 20# Knee (Frequent 34-66% of Day): 10# Knee (Constant 67-100% of Day): NA Knee PDL: Light Waist (Occasional 1-33% of Day): 15# Waist (Frequent 34-66% of Day): 8# Waist (Constant 67-100% of Day): NA Waist PDL: Sedentary-Light Shoulder (Occasional 1-33% of Day): 15# Shoulder (Frequent 34-66% of Day): 8# Shoulder (Constant 67-100% of Day): NA Shoulder PDL: Sedentary-Light Overhead (Occasional 1-33% of Day): 10# Overhead (Frequent 34-66% of Day): 8# Overhead (Constant 67-100% of Day): 8# Overhead PDL: Sedentary Bending: Frequent Ability (34-66% of day) Squatting: Occasional Ability (1-33% of day) Kneeling: Frequent Ability (34-66% of day) Comments: with external support Reaching out: Frequent Ability (34-66% of day) Reaching up: Frequent Ability (34-66% of day) Sitting: Occasional Ability (1-33% of day) Comments: with shifting body weight Walking: Occasional Ability (1-33% of day) Standing: Occasional Ability (1-33% of day) Comments: with shifting body weight Duration Sedentary Sedentary Light Light Light Medium Medium Medium Heavy Very Heavy Heavy Occasional (0-33% of day) Frequent (34-66% of day) Constant (67-100% of day) 10 # Negligible Negligible 15 # 8 # Negligible 20 # 10# Negli. 35 # 18 # 7 # 50 # 25 # 10 # 75 # 100 # >100 # 38 # 50 # >50 # 15 # 20 # >20 # Height: 1.47 m Weight:: 53.524 kg Hand Dominance: Right Medical History Including Restrictions: Pt states she was in good health until she had pain. Pt states she was laid off in August from work and when she was called back to work, she had back pain and right leg pain. Pt states in November 2019 she went on short disability and transitioned fold skiver disability in Jan or Feb. Pt states she went to see Dr. Duong a care management specialist in October 2019. Dr. Duong did x-ray and MRI and was referred to pain mtg. Pt started seeing for pain mtg in Mar. and has had 3 sets of spine injections. Pt feels her last one was helpful. Pt states she did have physical therapy without success. pt states her urologist placed her on a 35# lift restriction due to her bladder procedure. Diagnoses: low back pain. right lumbar radiculopathy. bladder suspension sx. ulcerative colitis Symptoms: Back pain Pain: Pt states her current pain sitting 0/10. Pt states her pain increases with increase walking. States pain increases 4/10. pt states she does use ice to assist with decreasing inflamation. Work History: Pt states she has worked for [employer] for 8 years. 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 PT states she is requited to lift and states she lifts no more than 5-7# pt states she stands during her shifts other than a one 10 min break and 20 min break. Pt states her job does not have light duty. pt is concerned with returning to work and performing her job duties. Pt states prior to working at the above job she was working as a [employer] business and worked there for 8-9 years. pt states she was required to stand during her hours worked pt was working full-time. 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 Behavioral: Pt cooperative throughout assessment. ADLS: Pt states she lives with her cousin in a two-story home with 2 entry steps no rails. pt states her bedroom is on 2nd floor (16 steps with one rail) pt states she has no trouble with stairs. Pt states she uses a walk-in shower and 2 grab bars in shower. pt states she can shower ind. Pt states she is ind. with getting dressed. Pt states she does not clean. pt states she does cook. Pt states her cousin has horses but does not help with this since her back started hurting. Pt states she and her cousin go grocery shopping together. Pt states she drives ind. pt states she can wash dishes and can cook light meals. Pt has grown children one out of states and the other out of town. Pt reports prior to hurting her back she would do all daily tasks with bathing/dressing/meal prep/yard work and helped her cousin with the horses. Pt would like to get her pain under control to return to her PLOF. Physical Examination: pt demo with poor posture, shoulders rolled forward and neck forward. Pt with thoracic curvature. ROM: pt demo with bilateral shoulder flexion to 160* as shoulders are forwared and this limits UE ROM. pt demo with LE ROM WNL. pt demo with lumbar flexion/ext/lateral and and side bend WFL. Strength: MMT BUE 4+/5. MMT hip flex right 4/5 left 4+/5. Right knee ext/flex 4+/5 left 4+/5. hip adduction 4+/5 abd 4+/5 Right Manager Biostatistics Strength Average: 30.00 Right Manager Biostatistics Strength Percentile: 4% Left Manager Biostatistics Strength Average: 31.66 Left Manager Biostatistics Strength Percentile: 7% Right Lateral Pinch Average: 4.00 Right Lateral Pinch Percentile: <10% Left Lateral Pinch Average: 6.33 Left Lateral Pinch Percentile: <10% Right Tripod Pinch Average: 4.00 Right Tripod Pinch Percentile: <10% Left Tripod Pinch Average: 3.66 Left Tripod Pinch Percentile: <10% Comments: pt demo with fair cut off saw grader/pinch for age Sensation: denies Fine Motor: 9-hole peg test. right 21.12 sec.= 50%. left 18.95 sec. = 90%. pt demo with good fine motor skills Balance: no loss of balance noted during assessment Bending: pt demo the ability to bend forward three times, ten times and ten times rapidly. pt states she was getting right hip/leg pain 2/10. pt can bend forward on a frequent ability due to increase in pain. Squatting: pt demo the ability to squat three times and ten times. pt was unable to squat ten times rapidly due to a increase in right hip/leg pain 2/10. pt reported legs feel like rubber indicating fatigue of muscles. pt can squat on a occasional ability. Kneeling: pt demo the ability to kneel three times, ten times and ten times rapidly. Pt used external support. Pt can kneel on a frequent ability with external support. Reaching out/up: pt demo the ability to reach out/up three times. ten times and ten times rapidly while standing. pt can reach up/out on a frequent ability Walking: Pt demo the ability to ambulate a reciprocal step pattern. pain 1-2/10 on right thigh. Pt stateslegs feel like rubber. pt states she hasn?t been able to walk longer distances since October 2020. pt can ambulate on a occasional ability. Standing: pt demo the ability to stand for 5 min pt shifted body weight from side to side after 1 min of standing pt continued to stand and lifting feet off floor to shift weight. Sitting: pt demo the ability to sit for 40 min with no apparent or expressed discomfort. pt can sit on a frequent ability. Climbing Stairs: pt demo the ability to ascend/descend ten steps with a reciprocal step pattern with use of hand rail on right side. Floor Lift: Pt demo the ability to lift 20# from this level with good lifting mechanics. Knee Lift: Pt demo the ability to lift 20# from this level with good lifting mechanics. Waist Lift: Pt demo the ability to lift 15# from this level with good lifting mechanics. Shoulder Lift: Pt demo the ability to lift 15# from this level with good lifting mechanics. Overhead Lift: Pt demo the ability to lift 10# from this level with good lifting mechanics. Carrying: pt demo the ability to carry 20# for 40 feet with holding wt on right side of hip.
--- NOTE | 2020-08-17 15:29 | HP.OTFCE.D ---
FCE D/C Summary - Discharge JERSON MURPHY was seen for a one time visit for an FCE on 08/12/20 and is discharged.
== END 2020-08-12 19:00 | disposition home or self-care (01) ==
LOC: OT 08:57
PROVIDERS: PCP Family Medicine; Referring Provider Family Medicine; Visit Provider Family Medicine
DX: M54.16 Radiculopathy, lumbar region (principal)
CPT/HCPCS: 97750

== ENCOUNTER → 2020-08-20 14:59 | Outpatient (CLI) | payer BC, SELFPAY ==
[2020-08-20 17:58] LABS: T4 Free Direct 0.97 ng/dL (0.76-1.46); Thyroid Stim Hormone (TSH) 3.87 uIU/mL (0.358-3.74)
[2020-09-03 16:46] LABS: Anti-Thyroglobulin AB 9.2 IU/mL (0.0-0.9); Thyroglobulin RIA 17 ng/mL (.); Thyroid Peroxidase AB 35 IU/mL (0-34)
== END ==
PROVIDERS: PCP Family Medicine; Referring Provider Family Medicine; Visit Provider Family Medicine
DX: R94.6 Abnormal results of thyroid function studies (principal)
CPT/HCPCS: 36415; 84432; 84439; 84443; 86376; 86800

== ENCOUNTER → 2020-08-28 14:39 | Outpatient (CLI) | payer BC, SELFPAY ==
--- NOTE | 2020-08-28 14:42 | US_ITS ---
STUDY: THYROID ULTRASOUND REASON FOR EXAM: Female, 64 years old. THYROID NODULE TECHNIQUE: Ultrasound evaluation of the thyroid was performed with real-time and static jensen-scale imaging. COMPARISON: None. FINDINGS: RIGHT LOBE: The right lobe of the thyroid gland measures 5.7 x 1.4 x 2.2 cm. There is a homogeneous echotexture. Several nodules, one of them is complex in nature measuring 1.8 x 1.1 x 2 cm and the second is solid in nature which is mildly hyper vascular measuring 2 x 1.6 x 1.7 cm. LEFT LOBE: The left lobe of the thyroid gland measures 4.9 x 1.4 x 1.7 cm. There is a homogeneous echotexture. Multiple tiny nodules, largest measuring 2 x 3 x 2 mm in the midpole region which is cystic in nature ISTHMUS: The isthmus measures 2 mm. The regional lymph nodes are normal. US/Thyroid IMPRESSION: Multiple nodules, predominantly cystic on the left however, solid and mildly hypervascular nodule in the right lobe as detailed above. This lesion would be amenable to ultrasound-guided FNA Electronically Signed: Roosevelt Ponce DO at 0:12 EST Tel , Service support ,
== END ==
PROVIDERS: PCP Family Medicine; Referring Provider Family Medicine; Visit Provider Family Medicine
DX: E04.1 Nontoxic single thyroid nodule (principal)
CPT/HCPCS: 76536

== ENCOUNTER → 2020-09-09 11:37 | Outpatient (CLI) | payer BC, SELFPAY ==
--- NOTE | 2020-09-09 11:38 | BI_ITS ---
MAMMOGRAPHY - BILATERAL SCREENING REASON FOR EXAM: Female, 64 years old. Routine annual screening examination. PERTINENT HISTORY: Non-contributory. TECHNIQUE: Digital bilateral breast valerie (3D mammographic acquisition) in the CC and MLO projections. 2-D mediolateral oblique (MLO) and craniocaudad (CC) views of both breasts were obtained. CAD: Full Field Digital Mammography with Computer Added Detection was performed. COMPARISON: Comparison is made with prior outside examination dated 05/23/2017. FINDINGS: Breast Composition: The breasts are extremely dense, which lowers the sensitivity of mammography. There are no dominant masses or suspicious calcifications. No other significant abnormalities are identified. There has been no significant change since the prior study. BI/SCRN MAMM (CAD)W/VALERIE BILAT IMPRESSION: Stable bilateral screening mammogram. Yearly follow-up mammogram recommended. (A) ASSESSMENT CATEGORY: BIRADS Category 1: Negative. A letter regarding these results will be sent to the patient by the facility within 30 days. Approximately 10% of breast cancers are not detected by mammography. A normal mammogram should not delay biopsy of a clinically suspicious abnormality. [id number] Electronically Signed: Byron Blanco MD at 13:55 EDT , Service support ,
--- NOTE | 2020-09-09 11:40 | BD_ITS ---
STUDY: DUAL ENERGY X-RAY ABSORPTIOMETRY / DXA REASON FOR EXAM: Female, 64 years old. [id number]. The patient is postmenopausal. Loss of height. TECHNIQUE: Bone Mineral Density (BMD) measurements of lumbar spine and bilateral hips were obtained. COMPARISON: None. FINDINGS: Lumbar Spine (L1-L4): g/cm2 (0.992) / T-score (-1.7) / Z-score (-0.1) Findings are suggestive of osteopenia with a moderate fracture risk. Left Femur Total: g/cm2 (0.673) / T-score (-2.7) / Z-score (-1.4) Left Femoral Neck: g/cm2 (0.713) / T-score (-2.3) / Z-score (-0.8) Right Femur Total: g/cm2 (0.619) / T-score (-3.1) / Z-score (-1.8) Right Femoral Neck: g/cm2 (0.709) / T-score (-2.4) / Z-score (-0.9) BD/Dexa Bone Density Study IMPRESSION: The patient is considered osteoporotic as outlined below according to World Steve Organization (WHO) criteria with a high fracture risk. Reference Information: The T-score is the number of standard deviations above or below the standard which is normal for young adults at their peak bone mineral density. The World Health Organization (WHO) interprets the T-scores as follows: Above -1 Normal bone density Between -1 and -2.5 Osteopenia Equal to / or below -2.5 Osteoporosis As a practical clinical guideline, osteopenia may be graded as follows: Mild -1 through -1.5 Moderate -1.6 through -2.0 Severe -2.1 through -2.4 The Z-score is the number of standard deviations above or below age-matched controls. A Z-score of less than -1.5 would be considered abnormal. References: 1. NIH Osteoporosis and Related Bone Diseases www osteo.org 2. International Society for Clinical Densitometry www iscd.org 3. National Osteoporosis Foundation www nof.org Electronically Signed: Byron Blanco MD at 15:15 EDT , Service support ,
== END ==
LOC: OPBD 11:38
PROVIDERS: PCP Family Medicine; Referring Provider Family Medicine; Visit Provider Family Medicine
DX: Z78.0 Asymptomatic menopausal state (principal); Z12.31 Encounter for screening mammogram for malignant neoplasm of breast
CPT/HCPCS: 77063; 77067; 77080

== ENCOUNTER → 2020-09-10 | Outpatient (CLI) | payer BC, SELFPAY ==
--- NOTE | 2020-09-10 | FLU_PTH ---
PATIENT: JERSON MURPHY LOC: [facility] U#:[id number] AGE/SX: 64/F ROOM: RE09/10/[address]: Dr. Tuan Portillo MD : 1955 BED: DIS: 09/10/2020 SPEC #: [id number] RECD: 09/10/20 18:06 STATUS: VINNY REZhang #: [id number] JESS: 09/10/20 00:[address]: Tuan Portillo DEPT: CYTOLOGY RECD BY: Tito Huffman ENTERED: 09/11/20 07:54 SP TYPE: Fluid OTHR DR: Dr. Porfirio Donato MD Tissues: A - Thyroid gland, NOS B - Thyroid gland, NOS Procedures: Special Stain Group II Surgery Specimen Level IV Cytospin Fluid HEADER OPERATION: Right thyroid FNA x2 PRE-OP DIAGNOSIS: Thyroid nodules TISSUE SUBMITTED: A - Right thyroid fluid for cytology, B - Right thyroid slides x8 DIAGNOSIS CYTOLOGY A. Right thyroid nodule fluid for cytology (cytospin and cell block): A few benign follicular cells and macrophages are noted. See comment. B. Right thyroid nodule, FNA (smears): Consistent with benign follicular/colloid nodule. Adequate for evaluation. ERNESTO:helga 09/14/2020 COMMENT A. The findings are suggestive of benign cyst contents. If this specimen is from the different nodule than the specimen B, then, the specimen is limited in evaluation due to lack of adequate number of follicular cells. Correlation with clinical, radiologic findings and appropriate follow up are necessary. CYTOLOGY STUDY Slides are reviewed. CYTOLOGY GROSS A - Received is 1 ml of red cloudy fluid labeled with the patient's name and and designated per the requisition as right thyroid. Submitted for cytology preparation including cell block. B - Received are eight smears labeled with the patient's name and designated per the requisition as right thyroid. Submitted for staining. / helga 09/11/2020 TC:5 CPT: 14960, 21732, 03301
[2020-09-10 14:14] VITALS: BMI 25.4
== END | disposition home or self-care (01) ==
LOC: LABSPEC 16:20
PROVIDERS: PCP Family Medicine; Referring Provider Surgery; Visit Provider Surgery
DX: E04.2 Nontoxic multinodular goiter (principal)
CPT/HCPCS: 88108; 88305; 88313

== ENCOUNTER → 2020-09-23 14:08 | Outpatient (CLI) | payer BC, SELFPAY ==
[2020-09-10 14:14] VITALS: BMI 25.4
[2020-09-23 18:01] LABS: Vitamin D,25 Hydroxy 46.8 ng/mL
[2020-09-23 18:10] LABS: ALB/GLOB Ratio 0.8 RATIO (0.9-2.4); AST(SGOT) 16 U/L (15-37); Alanine Aminotransfer ALT/SGPT 18 U/L (13-56); Albumin, Serum 3.3 g/dL (3.2-5.0); Alkaline Phosphatase 72 U/L (45-117); Anion Gap 6 (5-15); BUN 16 mg/dL (7-18); BUN/Creat Ratio 18.8 RATIO (10-20); Calcium,Total 8.6 mg/dL (8.5-10.1); Chloride 108 mmol/L (98-107); Creatinine, Serum 0.85 mg/dL (0.55-1.02); EST Glomerular Filtration Rate 71 mL/min (>60); Est Glom Filt Rate - Afr Amer 86 mL/min (>60); Globulin 4.4 g/dL (2.2-4.2); Glucose 109 mg/dL (74-106); Potassium 3.5 mmol/L (3.5-5.1); Protein, Total 7.7 g/dL (6.4-8.2); Sodium Level 139 mmol/L (136-145)
== END ==
PROVIDERS: PCP Family Medicine; Referring Provider Family Medicine; Visit Provider Family Medicine
DX: M81.0 Age-related osteoporosis without current pathological fracture (principal)
CPT/HCPCS: 36415; 80053; 82306

== ENCOUNTER → 2021-02-01 | Outpatient (CLI) | payer BC, SELFPAY ==
[2020-09-10 14:14] VITALS: BMI 25.4
== END | disposition home or self-care (01) ==
PROVIDERS: PCP Family Medicine; Referring Provider Family Medicine; Visit Provider Family Medicine
DX: Z20.822 Contact with and (suspected) exposure to COVID-19 (principal)
CPT/HCPCS: 87635; U0005; U0003

== ENCOUNTER → 2021-02-19 08:16 | Outpatient (CLI) | payer BC, SELFPAY ==
--- NOTE | 2021-02-19 08:18 | RAD_ITS ---
STUDY: X-RAY - LEFT KNEE REASON FOR EXAM: Female, 65 years old. KNEE PAIN TECHNIQUE: 4 view(s) of the knee. COMPARISON: None. FINDINGS: Normal visualized distal femur. Normal visualized proximal tibia and fibula. Normal proximal tibiofibular articulation. There is a bipartite type patella. Normal medial femorotibial compartment. Normal lateral femorotibial compartment. Normal patellofemoral articulation. Small joint effusion. RAD/Knee 4 or More Views IMPRESSION: Bipartite patella. Small joint effusion. Electronically Signed: Byron Blanco MD at 9:54 EDT , Service support ,
--- NOTE | 2021-02-19 08:19 | RAD_ITS ---
STUDY: X-RAY - RIGHT KNEE REASON FOR EXAM: Female, 65 years old. KNEE PAIN TECHNIQUE: 3 view(s) of the knee. COMPARISON: None. FINDINGS: Normal visualized distal femur. Normal visualized proximal tibia and fibula. Normal proximal tibiofibular articulation. Bipartite patella. Normal medial femorotibial compartment. Normal lateral femorotibial compartment. Normal patellofemoral articulation. Small joint effusion. RAD/Knee 4 or More Views IMPRESSION: Bipartite patella. Small joint effusion. Electronically Signed: Byron Blanco MD at 10:00 EDT , Service support ,
[2021-02-19 10:22] LABS: Absolute Lymphocyte Count 2.87 X10^3/uL (0.83-4.51); Absolute Neutrophil Count 3.4 X10^3/uL (2.0-7.7); Basophil# 0.05 X10^3/uL; Basophil% 0.7 % (0-1); Eosinophil# 0.23 X10^3/uL; Eosinophils% 3.1 % (0-5); Hematocrit 39.9 % (37-47); Hemoglobin 12.7 g/dL (12.0-15.0); Lymphocyte # 2.87 X10^3/ul (0.83-4.51); Lymphocyte % 38.5 % (19-41); Mean Corp Hgb Conc 31.8 g/dL (32-36); Mean Corpuscular Hgb 28.3 pg (27.0-32.0); Mean Corpuscular Volume 88.9 fL (81-99); Mean Platelet Vol. 11.8 fl (6.2-12.0); Monocyte# 0.91 X10^3/uL; Monocyte% 12.2 % (0-10); NRBC Flagged by Analyzer 0 % (0-5); Neutrophil # 3.38 X10^3/uL (2.7-7.7); Neutrophil % 45.4 % (47-70); Platelet Count 376 K/mm3 (150-450); RBC Distribution Width CV 15.6 % (11.6-14.6); RBC Distribution Width SD 50.9 fl (35.1-43.9); Red Blood Count 4.49 M/mm3 (4.2-5.4); White Blood Count 7.5 K/mm3 (4.4-11.0)
[2021-02-19 10:41] LABS: Vitamin B12 1494 pg/mL (211-911); Vitamin D,25 Hydroxy 62.3 ng/mL
[2021-02-19 10:50] LABS: ALB/GLOB Ratio 0.8 RATIO (0.9-2.4); AST(SGOT) 19 U/L (15-37); Alanine Aminotransfer ALT/SGPT 21 U/L (13-56); Albumin, Serum 3.6 g/dL (3.2-5.0); Alkaline Phosphatase 67 U/L (45-117); Anion Gap 8 (5-15); BUN 14 mg/dL (7-18); BUN/Creat Ratio 15.4 RATIO (10-20); Calcium,Total 8.7 mg/dL (8.5-10.1); Chloride 104 mmol/L (98-107); Creatinine, Serum 0.91 mg/dL (0.55-1.02); EST Glomerular Filtration Rate 66 mL/min (>60); Est Glom Filt Rate - Afr Amer 80 mL/min (>60); Globulin 4.3 g/dL (2.2-4.2); Glucose 106 mg/dL (74-106); Iron 51 ug/dL (50-170); Potassium 3.1 mmol/L (3.5-5.1); Protein, Total 7.9 g/dL (6.4-8.2); Sodium Level 141 mmol/L (136-145); T4 Free Direct 0.98 ng/dL (0.76-1.46); Thyroid Stim Hormone (TSH) 2.12 uIU/mL (0.358-3.74)
== END ==
LOC: MTLAB 08:17
PROVIDERS: PCP Family Medicine; Referring Provider Family Medicine; Visit Provider Family Medicine
DX: M81.0 Age-related osteoporosis without current pathological fracture (principal); E06.3 Autoimmune thyroiditis; K51.90 Ulcerative colitis, unspecified, without complications; M25.561 Pain in right knee; M25.562 Pain in left knee
CPT/HCPCS: 36415; 73564; 80053; 82306; 82607; 83540; 84439; 84443; 85025

== ENCOUNTER 2021-06-08 14:00 | Outpatient (RCR) | payer BC, SELFPAY ==
--- NOTE | 2021-03-08 14:51 | HP.PTEVAL_ITS ---
Patient's Visit Information JERSON MURPHY is a 65 year old F referred to Physical Therapy by Dr. Porfirio Donato MD with a diagnosis of R knee biparte patella. Date of Evaluation: 03/08/21 Physical Therapist: Freeman Kaminski DPT - Visit Plan Frequency: 2x /Week Duration: 4 Weeks Plan: Start with stretching ROM, (flexion, extension), quad strengthening/glute med strengthening. - Subjective Pt. is here today for her initial evaluation with diagnosis of Bipartite patella and knee pain. Pt. has this pathology in B knees, but is having most of her pain in her R knee. Pt. reports having increased pain at posterior medial aspect of her knee with flexion past ~85deg. Pt. reports not working currently. Pt. is having increased pain with walking, standing, squatting, and stair negotiation. Decreased pain: resting, ice. No lasting improvement noted. She denies N/T in either LE. Pt. is sleeping okay. Pt. reports no locking or giving out on her. Pt. is hopeful to decrease her pain in order to get back to all daily activities without limitations. She has been on medical leave from work since earlier this year. - Pain R knee Pain Intensity (Out of 10): 1 Pain Intensity Range: 0, 6 - Objective POSTURE: Pt. has slight flexed posture, normal knee positioning, slight wt. shift to L side. overall slight posture noted. PALPATION: Pt. has no anterior knee tenderness, but does pain at medial aspect of her popliteal fossa. Pt. reports pain in similar area with increased knee flexion. NEURO: normal throughout. ROM: R knee 0-0-105deg increase in symptoms after ~90deg of flexion. No pain with extension with over pressure. Pt. has normal L knee ROM. MMT: Pt. has 5-/5 of BLEs. with no pain throughout. GAIT: Pt. reports increased R knee pain during stance phase on R side. Pt. has normal knee positioning, but decreased knee flexion during swing. - Special Tests R Knee Car - Meniscus: Positive R Knee Disco Test - Meniscus: Positive R Knee Casey - ACL: Negative R Knee Anterior Drawer - ACL: Negative R Knee Pivot Shift - ACL, Ant. Rotator Instability: Negative R Knee Posterior Sag - PCL: Negative R Knee Valgus - MCL: Negative R Knee Patellar Apprehension - PFS: Negative R Knee Patellar Grind - PFS: Negative - Balance/Special Test Scores Lower Extremity Functional Score: 31 - Goals Goal 1:: LTG: Pt. to be I with HEP. Goal Time Frame: 4-6 Weeks Goal 2:: STG: Pt. to have increased AROM of her R knee to 0-0-120deg with minimal increase in symptoms. Goal Time Frame: 2-4 Weeks Goal 3:: LTG: pt. to ambulate unlimited distances with 0-1/10 pain in her R knee. Goal Time Frame: 4-6 Weeks Goal 4:: LTG: Pt. to negotiate 1 flight of stairs with 1 HR with reciprocal pattern with normal knee positioning and 0-2/10 pain in her R knee. Goal Time Frame: 4-6 Weeks Goal 5:: LTG: pt. to have increased RLE strength increased to 5/5 throughout. Goal Time Frame: 4-6 Weeks - Rehabilitation Potential Physical Therapy Diagnosis: Pt. has signs and symptoms of R knee pain. She had positive signs of posterior horn meniscal pathology. She has been fairly sedentary more recently due to back pain injury. She was trying to get back to into walking and has been having more pain. Pt. would benefit from ROM progression and R knee stability exercises. Rehabilitation Potential: Good - Anticipated Interventions Patient/Client Instruction: Educate patient on: Condition, Plan of Care, Risk Factors, Benefits of Fitness Program For the Purpose of:: To improve decision making, To facilitate caregiver knowledge, To improve self management, To prevent re-injury, To improve ability to perform tasks related to life management Therapeutic Exercise to Include: Strength training, Power training, Endurance training, Body mechanics, Postural training, Flexibilty training, Gait and locomotor training, Passive ROM, Active ROM For the Purpose of:: To decrease pain, To decrease swelling/inflammation, To increase ROM, To improve nutrient delivery to tissue, To increase oxygenation perfusion, To improve muscle performance and motor function, To improve ability to perform ADL's, To improve gait and locomotor functions, To improve health of tissue, To decrease soft tissue restriction, To increase flexibility/ROM, To imp rove endurance Manual Therapy Techniques to Include: Mobilization, Functional dry needling, Soft tissue mobilization For the Purpose of:: To decrease pain, To decrease swelling/inflammation, To increase ROM, To improve nutrient delivery to tissue, To increase oxygenation perfusion, To improve muscle performance and motor function Thank you for the opportunity to evaluate your patient. For Medicare and Medicare HMO plans, please review the plan of care and approve it. It will need to be FAXED BACK to us at [phone] for Medicare purposes. For Medicare only, by signing this I certify the plan of care. Please let me know if there are questions or concerns regarding this plan of care. Physician Signature:____ Date:
--- NOTE | 2021-06-08 16:34 | HP.PTDCSUM ---
It has been my pleasure to treat JERSON MURPHY referred by Dr. Porfirio Donato MD, with the diagnosis of R knee biparte patella for a total of 8 visit(s). Discharge Date: 06/08/21 Please see the following information for a summary of their discharge status. Subjective: Pt reports her knee pain has significantly decreased and overall feels her knee has improved. Pt agrees R knee Pain Intensity (Out of 10): 0 % Improvement: 90 Objective/Function: ROM: R knee 0-0-140deg. STRENGTH: RIGHT: hip flexion 4+/5,abduction 4+/5, extension 4/5 IR 4+/5, ER 4/5 , Knee flexion 4+/5, extension 5/5. All goals met or near met, and pt agrees that she is able to continue strengthening with HEP independently. Goal 1:: LTG: Pt. to be I with HEP. Goal Progress: Goal Met Goal 2:: STG: Pt. to have increased AROM of her R knee to 0-0-120deg with minimal increase in symptoms. Goal Progress: Goal Met Goal 3:: LTG: pt. to ambulate unlimited distances with 0-1/10 pain in her R knee. Goal Progress: Goal Met Goal 4:: LTG: Pt. to negotiate 1 flight of stairs with 1 HR with reciprocal pattern with normal knee positioning and 0-2/10 pain in her R knee. Goal Progress: Goal Met Goal 5:: LTG: pt. to have increased RLE strength increased to 5/5 throughout. Goal Progress: Progressing Plan: D/C PT. Continue with strengthening exercises focusing on glut med, hip extensors, and hip flexors. Discharge Comments: Pt. reports overall doing well. She reports overall decreased knee and low back pain. She is I with her current HEP for strengthening and is to continue with her exercises. Pt. will complete her HEP and follow up with physician as needed. If there are questions or concerns regarding this patient's physical therapy, please feel free to call me at [phone]. Thank you for the referral of this patient. Sincerely, Freeman Muniz Sipos, DPT Balance/Gait/Functional tests - Balance/Special Test Scores Lower Extremity Functional Score: 55
== END 2021-06-08 19:00 | disposition home or self-care (01) ==
LOC: PT 14:00
PROVIDERS: PCP Family Medicine; Referring Provider Family Medicine; Visit Provider Family Medicine
DX: M25.562 Pain in left knee (principal); M25.561 Pain in right knee
CPT/HCPCS: 97110; 97161; 97164

== ENCOUNTER → 2021-06-24 | Outpatient (CLI) | payer BC, SELFPAY | END | disposition home or self-care (01) | PROVIDERS: PCP Family Medicine; Visit Provider Family Medicine | DX: B34.9 Viral infection, unspecified (principal) | CPT/HCPCS: 87635; U0003; U0005 ==

== ENCOUNTER 2021-06-27 11:44 | Emergency (ER) | payer BC, SELFPAY ==
[2021-06-27 11:45] VITALS: BP 135/82; PULSE 94; RESP 20; TEMP 36.3; O2SAT 94; BMI 22.9
--- NOTE | 2021-06-27 13:37 | EX.ED.VIS.UR ---
HPI HPI - URI History of Present Illness Chief Complaint: Nausea/Vomiting Narrative Narrative: 65-year-old female presenting with cough. She states her temperature has been about 100 ?F. She states that yesterday she vomited once. She is able to eat and drink today. She was tested for Covid with a rapid Covid earlier this week which was negative. She has a PCR test pending but does not have the result. She does not have any abdominal pain. She denies chest pain. ROS ROS ED Constitutional Constitutional ED: Reports chills and fever(s) ENT ENT ED: Denies rhinorrhea or sore throat Cardiovascular Cardiovascular: Denies chest pain or palpitations Respiratory/Chest Respiratory/Chest: Reports cough and dyspnea Gastrointestinal Gastrointestinal: Reports nausea and vomiting; Denies abdominal pain Genitourinary Genitourinary ED: Denies dysuria or hematuria Musculoskeletal Musculoskeletal: Reports myalgias; Denies arthralgias or neck pain Integumentary Denies abscess or rash Neurologic Neurologic: Denies headache(s), paresthesias or weakness PFSH PFSH Medical History Abdominal pain Anemia Blood in stool Diarrhea Family history of colon cancer Fatigue Hypoalbuminemia Hypokalemia Multiple thyroid nodules Positive fecal occult blood test Rectal bleeding Home Medications cholecalciferol (vitamin D3) 50 mcg (2,000 unit) capsule 2,000 unit PO QDAY 01/05/18 [History Last Taken Unknown] mecobalamin (vitamin B12) 5,000 mcg disintegrating tablet 5,000 mcg PO DAILY 01/05/18 [History Last Taken Unknown] multivitamin 1 tab PO QAM 01/05/18 [History Last Taken Unknown] adalimumab 40 mg SUBCUT QWEEK 12/19/18 [History Last Taken Unknown] biotin 2,500 mcg capsule 2,500 mcg PO DAILY 09/10/20 [History Last Taken Unknown] calcium carbonate 600 mg-vitamin D3 20 mcg (800 unit) chewable tablet 1 tab PO DAILY 09/10/20 [History Last Taken Unknown] iron, carbonyl 18 mg iron chewable tablet 18 mg PO DAILY 09/10/20 [History Last Taken Unknown] Allergy/AdvReac Type Severity Reaction Status Date / Time codeine Allergy Hives Verified 09/10/20 14:15 Penicillins [PCN] Allergy Hives Verified 09/10/20 14:15 Family History Father Heart disease Hypertension Uncle Colon cancer Mother Hypertension Surgical History History of bladder repair surgery Hx of hysterectomy Hx of nasal polypectomy Hx of tonsillectomy Social History Smoking Status: Never smoker second hand exposure: No alcohol intake: never substance use type: does not use caffeine: Yes what type of physical activity do you participate in: none frequency: does not exercise seatbelt use: always EXAM Physical Exam Const Vital Signs: 06/27/21 11:45 Temperature 97.4 F L Temperature Source Temporal Pulse Rate 94 Respiratory Rate 20 H Blood Pressure 135/82 H Blood Pressure Mean 99 Pulse Ox 94 Oxygen Delivery Method Room Air Positive well nourished General Appearance ED: NAD; Negative for pallor HEENT Reports normocephalic, head/scalp atraumatic and moist mucous membranes Eyes PERRL and EOMs intact bilaterally Neck no lymphadenopathy and supple Chest Wall inspection of chest normal and palpation of chest normal Resp normal respiratory effort and clear to auscultation bilaterally Auscultation: Negative for rales, rhonchi or wheezes Cardio regular rate and regular rhythm GI normal to inspection, nondistended, normoactive bowel sounds Narrative: Deferred Extremity normal to inspection General Extremety ED: Yes edema and tenderness General Extremity: edema Neuro oriented x3 and CN's II-XII intact bilaterally Sensorium / Orientation: alert Motor Exam: strength 5/5 throughout Psych mental status grossly normal Attitude: No agitated Skin no rashes or lesions noted and no wounds General Skin Exam: Negative for jaundice or pallor MDM MDM MDM Narrative Medical decision making narrative: Patient presenting with viral symptoms. She has had a negative rapid test. She has a PCR test pending and does not know the result. Her vital signs are stable and she is afebrile. Her lungs are clear to auscultation. She is only vomited once but does request something for nausea. She is given Zofran in the ED. Patient offered monoclonal antibody treatment if she is positive on a PCR test. She states that she will do this. I will order a PCR test and she will quarantine until she gets the results. If her results are positive she can be referred to monoclonal antibody treatment. Impression: 1. Viral syndrome 2. Nausea/vomiting Discharge Plan Triage Chief Complaint: Nausea/Vomiting ED Provider: Angel Armstrong Dx/Rx/DC Orders Instructions: ED Vomiting (Adult) Prescriptions: No Action multivitamin tablet 1 tab PO QAM RF: 0 mecobalamin (vitamin B12) 5,000 mcg disintegrating tablet 5,000 mcg tablet,disintegrating 5,000 mcg PO DAILY RF: 0 cholecalciferol (vitamin D3) 2,000 unit capsule 2,000 unit PO QDAY RF: 0 Ferretts Carbonyl Iron 18 mg iron tablet,chewable 18 mg PO DAILY RF: 0 biotin 2,500 mcg capsule 2,500 mcg PO DAILY RF: 0 Caltrate 600 plus D 600 mg (1,500 mg)-800 unit tablet,chewable 1 tab PO DAILY RF: 0 adalimumab 40MG/0. pen injector kit 40 mg subcut QWEEK RF: 0 Primary Care Provider: Porfirio Donato Referrals: Porfirio Donato MD [Primary Care Provider] - Disposition Disposition: Home, Self Care
[2021-06-27] MEDS: Ondansetron ODT 4 MG Tablet PO (13:46)
== END 2021-06-27 14:00 | disposition home or self-care (01) ==
LOC: ED 13:51
PROVIDERS: Emergency Provider Student in an Organized Health Care Education/Training Program; PCP Family Medicine; Visit Provider Student in an Organized Health Care Education/Training Program
DX: R11.2 Nausea with vomiting, unspecified (principal); B34.9 Viral infection, unspecified; D64.9 Anemia, unspecified; Z79.899 Other long term (current) drug therapy; E04.2 Nontoxic multinodular goiter
CPT/HCPCS: 87426; 87635; 99283; U0003; U0005

== ENCOUNTER 2021-08-24 11:38 | Outpatient (CLI) | payer BC, SELFPAY ==
--- NOTE | 2021-08-24 11:42 | US_ITS ---
STUDY: THYROID ULTRASOUND REASON FOR EXAM: Female, 65 years old. Thyroid nodules TECHNIQUE: Ultrasound evaluation of the thyroid was performed with real-time and static jensen-scale imaging. COMPARISON: 3.5.21 FINDINGS: RIGHT LOBE: The right lobe of the thyroid gland measures 5.4 x 1.9 cm. There is a homogeneous echotexture. There are 3 nodules. 3 x 3 x 4 mm calcified nodule. Cystic and solid nodule is 19 x 17 mm. Solid lobulated nodule is 12 x 10 mm. The lesion is solid with regular margins and intra-nodular doppler flow. LEFT LOBE: The left lobe of the thyroid gland measures 4.8 x 1.4 cm. There is a homogeneous echotexture. There are nodules. Cystic 3 x 2.1 x 2.2 mm nodule that is stable. Solid 3.6 x 2.8 x 2.9 mm nodule is new with poorly defined borders. ISTHMUS: The isthmus measures 2 mm. US/Thyroid IMPRESSION: Right calcified nodule. This nodule is of uncertain composition due to calcification, is of indeterminate echogenicity, [id number], margins cannot be determined, contains microcalcifications and is peripherally calcified. TI-RADS points: 9. TI-RADS category: TR5. This nodule is highly suspicious but no FNA or follow-up is necessary given the small size of this nodule. There is a 19 mm Cystic and solid RIGHT nodule. This nodule is mixed cystic and solid, hypoechoic, [id number], smoothly marginated and contains no echogenic foci. TI-RADS points: 3. TI-RADS category: TR3. This nodule is mildly suspicious. Recommend follow-up thyroid ultrasounds at 2 and 4 years. There is a lobulated RIGHT nodule. This nodule is solid or almost completely solid, hyperechoic or isoechoic, [id number], is lobulated or irregular and contains no echogenic foci. TI-RADS points: 5. TI-RADS category: TR4. This nodule is moderately suspicious. Recommend follow-up thyroid ultrasounds at 1, 2 and 4 years. There is a new left nodule. This nodule is solid or almost completely solid, hypoechoic, [id number], is lobulated or irregular and contains no echogenic foci. TI-RADS points: 6. TI-RADS category: TR4. This nodule is moderately suspicious but no FNA or follow-up is necessary given the small size of this nodule. Electronically Signed: Gallo Ray MD at 17:49 EST ,
== END 2021-08-24 23:59 | disposition home or self-care (01) ==
LOC: US 11:41
PROVIDERS: PCP Family Medicine; Referring Provider Surgery; Visit Provider Surgery
DX: E04.2 Nontoxic multinodular goiter (principal)
CPT/HCPCS: 76536

== ENCOUNTER → 2021-11-11 | Outpatient (CLI) | payer BC, SELFPAY | END | disposition home or self-care (01) | PROVIDERS: PCP Family Medicine; Referring Provider Family Medicine; Visit Provider Family Medicine | DX: U07.1 COVID-19 (principal); B34.9 Viral infection, unspecified | CPT/HCPCS: 87635; U0003; U0005 ==

== ENCOUNTER → 2022-04-27 | Outpatient (CLI) | payer MEDICARE, SELFPAY ==
[2022-04-27 17:57] LABS: Absolute Lymphocyte Count 3.11 X10^3/uL (0.83-4.51); Absolute Neutrophil Count 3.9 X10^3/uL (2.0-7.7); Basophil# 0.05 X10^3/uL; Basophil% 0.6 % (0-1); Eosinophils% 2.5 % (0-5); Hematocrit 39.6 % (37-47); Hemoglobin 12.6 g/dL (12.0-15.0); Lymphocyte # 3.11 X10^3/ul (0.83-4.51); Lymphocyte % 38.4 % (19-41); Mean Corp Hgb Conc 31.8 g/dL (32-36); Mean Corpuscular Hgb 29.2 pg (27.0-32.0); Mean Corpuscular Volume 91.7 fL (81-99); Mean Platelet Vol. 11.6 fl (6.2-12.0); Monocyte# 0.82 X10^3/uL; Monocyte% 10.1 % (0-10); NRBC Flagged by Analyzer 0 % (0-5); Neutrophil # 3.91 X10^3/uL (2.7-7.7); Neutrophil % 48.3 % (47-70); Platelet Count 369 K/mm3 (150-450); RBC Distribution Width CV 14.7 % (11.6-14.6); RBC Distribution Width SD 50.2 fl (35.1-43.9); Red Blood Count 4.32 M/mm3 (4.2-5.4); White Blood Count 8.1 K/mm3 (4.4-11.0)
[2022-04-27 18:15] LABS: Vitamin D,25 Hydroxy 53.5 ng/mL
[2022-04-27 18:33] LABS: ALB/GLOB Ratio 0.7 RATIO (0.9-2.4); AST(SGOT) 19 U/L (15-37); Alanine Aminotransfer ALT/SGPT 19 U/L (13-56); Albumin, Serum 3.3 g/dL (3.2-5.0); Alkaline Phosphatase 61 U/L (45-117); Anion Gap 7 (5-15); BUN 14 mg/dL (7-18); Calcium,Total 9.4 mg/dL (8.5-10.1); Chloride 106 mmol/L (98-107); Creatinine, Serum 0.88 mg/dL (0.55-1.02); EST Glomerular Filtration Rate 68 mL/min (>60); Est Glom Filt Rate - Afr Amer 83 mL/min (>60); Globulin 4.7 g/dL (2.2-4.2); Glucose 112 mg/dL (74-106); Potassium 3.5 mmol/L (3.5-5.1); Sodium Level 139 mmol/L (136-145); Thyroid Stim Hormone (TSH) 3.55 uIU/mL (0.358-3.74)
== END | disposition home or self-care (01) ==
PROVIDERS: PCP Family Medicine; Referring Provider Family Medicine; Visit Provider Family Medicine
DX: R73.09 Other abnormal glucose (principal); E06.3 Autoimmune thyroiditis; M81.0 Age-related osteoporosis without current pathological fracture
CPT/HCPCS: 36415; 80053; 82306; 83036; 84439; 84443; 85025

== ENCOUNTER → 2023-04-21 | Outpatient (CLI) | payer OTHER, SELFPAY ==
[2023-04-21 17:41] LABS: Absolute Lymphocyte Count 3.48 X10^3/uL (0.83-4.51); Absolute Neutrophil Count 3.6 X10^3/uL (2.0-7.7); Basophil# 0.03 X10^3/uL; Basophil% 0.4 % (0-1); Eosinophil# 0.24 X10^3/uL; Eosinophils% 2.9 % (0-5); Hematocrit 40.6 % (37-47); Hemoglobin 12.7 g/dL (12.0-15.0); Lymphocyte # 3.48 X10^3/ul (0.83-4.51); Lymphocyte % 42.3 % (19-41); Mean Corp Hgb Conc 31.3 g/dL (32-36); Mean Corpuscular Hgb 28.9 pg (27.0-32.0); Mean Corpuscular Volume 92.3 fL (81-99); Monocyte# 0.91 X10^3/uL; Monocyte% 11.1 % (0-10); NRBC Flagged by Analyzer 0 % (0-5); Neutrophil # 3.55 X10^3/uL (2.7-7.7); Neutrophil % 43.2 % (47-70); Platelet Count 388 K/mm3 (150-450); RBC Distribution Width CV 14.6 % (11.6-14.6); White Blood Count 8.2 K/mm3 (4.4-11.0)
[2023-04-21 18:03] LABS: Vitamin B12 869 pg/mL (211-911); Vitamin D,25 Hydroxy 50.6 ng/mL
[2023-04-21 18:04] LABS: Hemoglobin A1c 5.9 % (3.8-5.6)
[2023-04-21 18:06] LABS: ALB/GLOB Ratio 0.7 RATIO (0.9-2.4); AST(SGOT) 18 U/L (15-37); Alanine Aminotransfer ALT/SGPT 22 U/L (13-56); Albumin, Serum 3.4 g/dL (3.2-5.0); Alkaline Phosphatase 62 U/L (45-117); Anion Gap 6 (5-15); BUN 17 mg/dL (7-18); BUN/Creat Ratio 18.7 RATIO (10-20); Calcium,Total 8.9 mg/dL (8.5-10.1); Chloride 103 mmol/L (98-107); Cholesterol 244 mg/dL (200); Creatinine, Serum 0.91 mg/dL (0.55-1.02); EST Glomerular Filtration Rate 65 mL/min (>60); Est Glom Filt Rate - Afr Amer 79 mL/min (>60); Globulin 4.7 g/dL (2.2-4.2); Glucose 106 mg/dL (74-106); High Density Lipoprotein 84 mg/dL; Potassium 3.4 mmol/L (3.5-5.1); Protein, Total 8.1 g/dL (6.4-8.2); Sodium Level 138 mmol/L (136-145); T4 Free Direct 0.86 ng/dL (0.76-1.46); Thyroid Stim Hormone (TSH) 4.22 uIU/mL (0.358-3.74); Triglycerides 209 mg/dL; Very Low Density Lipoprotein 42 mg/dL (5-40)
[2023-04-26 21:07] LABS: VITAMIN B6 36.7 ug/L (3.4-65.2); Vitamin B1, Thiamine 107.9 nmol/L (66.5-200.0)
== END | disposition home or self-care (01) ==
LOC: MFPLAB 15:29
PROVIDERS: PCP Family Medicine; Visit Provider Family Medicine
DX: R73.02 Impaired glucose tolerance (oral) (principal); M81.0 Age-related osteoporosis without current pathological fracture; E06.3 Autoimmune thyroiditis
CPT/HCPCS: 36415; 80053; 80061; 82306; 82607; 83036; 84207; 84425; 84439; 84443; 85025

== ENCOUNTER → 2023-05-24 | Outpatient (CLI) | payer MEDICARE, SELFPAY ==
--- NOTE | 2023-05-24 13:05 | US_ITS ---
EXAM: US SOFT TISSUES HEAD AND NECK, THYROID CLINICAL INDICATION: thyroid nodule TECHNIQUE: Barajas scale and color doppler imaging was performed of the thyroid gland. COMPARISON: US Thyroid dated 08/24/2021 FINDINGS: LEFT THYROID LOBE: Left thyroid lobe measures 4.6 x 1.2 x 1.3 cm. Echogenicity is homogeneous except for 3 mm colloid cyst and a 4 mm solid nodule. Solid nodule is wider than tall, fairly well-defined, isoechoic and without microcalcification. TI-RADS points: 3. TI-RADS category: TR3. This nodule is mildly suspicious but no FNA or follow-up is necessary given the small size of this nodule. RIGHT THYROID LOBE: Right thyroid lobe measures 5.4 x 1.9 x 1.9 cm. The dominant 2.2 cm solid and cystic mass arising from the lower pole is unchanged in appearance from prior study appearing wider than tall, well-defined and without microcalcification. TI-RADS points: 2. TI-RADS category: TR2. This nodule is not suspicious and no FNA or follow-up is necessary. 8 mm nodule also noted within the right lobe appearing cystic and solid, wider than tall and without microcalcification with similar score. Stable calcified 3 mm right thyroid nodule. Homogeneous echotexture with normal vascularity. ISTHMUS: Normal. No thyroid nodules are present. US/Thyroid IMPRESSION: Stable thyroid ultrasound. Electronically Signed: Carlos Nix MD at 17:04 EST ,
== END | disposition home or self-care (01) ==
LOC: US 13:05
PROVIDERS: PCP Family Medicine; Referring Provider Family Medicine; Visit Provider Family Medicine
DX: E04.1 Nontoxic single thyroid nodule (principal)
CPT/HCPCS: 76536

== ENCOUNTER 2024-06-22 14:41 | Emergency (ER) | payer MEDICARE, SELFPAY ==
[2024-06-22 14:42] VITALS: BP 117/72; PULSE 81; RESP 16; TEMP 36.9; O2SAT 94; BMI 21.1
[2024-06-22] MEDS: 0.9% Normal Saline (1000mL) 1,000 ML 999 ML IV (15:27)
[2024-06-22 15:37] LABS: Absolute Lymphocyte Count 1.49 X10^3/uL (0.83-4.51); Absolute Neutrophil Count 5.1 X10^3/uL (2.0-7.7); Basophil# 0.02 X10^3/uL; Basophil% 0.3 % (0-1); Eosinophil# 0.17 X10^3/uL; Eosinophils% 2.2 % (0-5); Hematocrit 40.6 % (37-47); Hemoglobin 13.3 g/dL (12.0-15.0); Lymphocyte # 1.49 X10^3/ul (0.83-4.51); Lymphocyte % 18.9 % (19-41); Mean Corp Hgb Conc 32.8 g/dL (32-36); Mean Corpuscular Hgb 29.2 pg (27.0-32.0); Mean Platelet Vol. 10.9 fl (6.2-12.0); Monocyte# 1.05 X10^3/uL; Monocyte% 13.3 % (0-10); NRBC Flagged by Analyzer 0 % (0-5); Neutrophil # 5.11 X10^3/uL (2.7-7.7); Neutrophil % 64.8 % (47-70); Platelet Count 282 K/mm3 (150-450); RBC Distribution Width CV 14.5 % (11.6-14.6); RBC Distribution Width SD 47.2 fl (35.1-43.9); Red Blood Count 4.56 M/mm3 (4.2-5.4); White Blood Count 7.9 K/mm3 (4.4-11.0)
--- NOTE | 2024-06-22 15:44 | EX.ED.DYSGE1 ---
HPI <ROWAN Guidry - Last Filed: 06/22/24 19:29> History of Present Illness Chief Complaint: Nausea/Vomiting/Diarrhea Narrative Narrative: Patient presenting today with diarrhea that started this morning. She reports that she tested positive for influenza A on Monday, her symptoms started on Monday. She has primarily had a nonproductive cough and nasal congestion. Today the diarrhea started. No recent antibiotics. She does have a history of colitis and is on Humira for this. She did not take her Humira dose on because she was not feeling well. This does not seem consistent with a typical colitis flare. She has concerns for dehydration and is presenting for that reason. She denies fevers, chills, melena, hematochezia, and abdominal pain. [facility] <ROWAN Guidry - Last Filed: 06/22/24 19:29> [facility] Medical History (Updated 06/22/24 @ 16:25 by ROWAN Guidry) Multiple thyroid nodules Anemia Abdominal pain Positive fecal occult blood test Hypoalbuminemia Blood in stool Family history of colon cancer Rectal bleeding Fatigue Hypokalemia Diarrhea Home Medications ?Medication ?Instructions ?Recorded ?Last Taken ?Type cholecalciferol (vitamin D3) 50 2,000 unit PO QDAY 01/05/18 Unknown History mcg (2,000 unit) capsule mecobalamin (vitamin B12) 5,000 5,000 mcg PO DAILY 01/05/18 Unknown History mcg disintegrating tablet multivitamin 1 tab PO QAM 01/05/18 Unknown History adalimumab 40 mg/0.8 mL 40 mg subcut QWEEK 12/19/18 Unknown History subcutaneous pen kit biotin 2,500 mcg capsule 2,500 mcg PO DAILY 09/10/20 Unknown History calcium 600 mg (as carbonate)-vit 1 tab PO DAILY 09/10/20 Unknown History D3 20 mcg (800 unit) chewable tablet (Caltrate plus D) iron, carbonyl 18 mg iron chewable 18 mg PO DAILY 09/10/20 Unknown History tablet (Ferretts Carbonyl Iron) ondansetron 4 mg disintegrating 4 mg PO Q8H PRN PRN Nausea #10 tabs 06/27/21 Unknown Rx tablet Allergy/AdvReac Type Severity Reaction Status Date / Time codeine Allergy Hives Verified 06/22/24 14:42 Penicillins (PCN) Allergy Hives Verified 06/22/24 14:42 Family History Father Heart disease Hypertension Uncle Colon cancer Mother Hypertension Surgical History Hx of tonsillectomy Hx of nasal polypectomy History of bladder repair surgery Hx of hysterectomy Social History Smoking Status: Never smoker second hand exposure: No alcohol intake: never substance use type: does not use caffeine: Yes what type of physical activity do you participate in: none frequency: does not exercise seatbelt use: always ROS <ROWAN Guidry - Last Filed: 06/22/24 19:29> ROS ED Constitutional Constitutional ED: Denies chills or fever(s) Cardiovascular Cardiovascular: Denies chest pain Respiratory/Chest Respiratory/Chest: Reports cough; Denies dyspnea Gastrointestinal Gastrointestinal: Reports diarrhea; Denies abdominal pain, constipation, melena, nausea or vomiting Genitourinary Genitourinary ED: Denies dysuria, hematuria or urinary urgency Musculoskeletal Musculoskeletal: Denies arthralgias or myalgias Integumentary Denies rash Neurologic Neurologic: Denies weakness EXAM <ROWAN Guidry - Last Filed: 06/22/24 19:29> Physical Exam Const Vital Signs: 06/22/24 14:42 06/22/24 16:41 06/22/24 17:24 Temperature 98.5 F 98.3 F 98.3 F Temperature Source Oral Oral Pulse Rate 81 70 70 Respiratory Rate 16 18 18 Blood Pressure 117/72 Blood Pressure Mean 87 Pulse Ox 94 97 97 Oxygen Delivery Method Room Air Room Air Positive well nourished, well developed and no apparent distress General Appearance ED: well developed HEENT Reports normocephalic and head/scalp atraumatic Mouth ED: Yes moist mucous membranes normal Eyes PERRL and EOMs intact bilaterally Neck full ROM and supple Chest Wall inspection of chest normal Resp normal respiratory effort and clear to auscultation bilaterally Cardio regular rate and regular rhythm GI soft to palpation, non-tender, non-distended and no masses Back/Spine normal ROM and normal to inspection Extremity normal to inspection and full ROM Neuro oriented x3, CN's II-XII intact bilaterally, moves all extremities, no focal motor deficits and no sensory deficits noted Sensorium / Orientation: awake and alert Psych mental status grossly normal and thought process normal Skin no rashes or lesions noted and no wounds <Dr. John Hodge DO - Last Filed: 06/22/24 18:32> Physical Exam Const Vital Signs: 06/22/24 14:42 06/22/24 16:41 06/22/24 17:24 Temperature 98.5 F 98.3 F 98.3 F Temperature Source Oral Oral Pulse Rate 81 70 70 Respiratory Rate 16 18 18 Blood Pressure 117/72 Blood Pressure Mean 87 Pulse Ox 94 97 97 Oxygen Delivery Method Room Air Room Air MDM <ROWAN Guidry - Last Filed: 06/22/24 19:29> [facility] MDM Narrative Medical decision making narrative: Patient presenting today with concerns for dehydration due to diarrhea that started this morning. She tested positive for influenza A on Monday. She is nontoxic-appearing and in no acute distress, her vitals are unremarkable. Clinically she does not appear dehydrated. Basic labs will be obtained and she will be given IV fluids. Her CBC is unremarkable. Sodium 134, potassium 3.2, creatinine 1.24 which is elevated from her baseline. She was given p.o. potassium replacement. She is tolerating p.o. fluids. She reports that she does have Imodium at home that she can take. Given she is tolerating p.o. fluids, she will be discharged home in stable condition with instructions to stay well-hydrated. Return instructions discussed. I recommended she follow-up with her PCP in the next 5 to 7 days. Lab Data Attestation: I reviewed the patient's lab results. Labs: Laboratory Results - last 24 hr 06/22/24 15:19 WBC 7.9 RBC 4.56 Hgb 13.3 Hct 40.6 MCV 89.0 MCH 29.2 MCHC 32.8 RDW Std Deviation 47.2 H RDW Coeff of Wing 14.5 Plt Count 282 MPV 10.9 Immature Gran % (Auto) 0.500 Neut % (Auto) 64.8 Lymph % (Auto) 18.9 L [place] % (Auto) 13.3 H Eos % (Auto) 2.2 Baso % (Auto) 0.3 Absolute Neuts (auto) 5.1 Absolute Lymphs (auto) 1.49 Nucleated RBC % 0 Sodium 134 L Potassium 3.2 L Chloride 96 L Carbon Dioxide 28.0 Anion Gap 10 BUN 18 Creatinine 1.24 H Estim Creat Clear Calc 30.76 Est GFR (MDRD) Af Amer 55 L Est GFR (MDRD) Non-Af 46 L BUN/Creatinine Ratio 14.5 Glucose 123 H Calcium 9.2 <Dr. John Hodge, DO - Last Filed: 06/22/24 18:32> [facility] Lab Data Labs: Laboratory Results - last 24 hr 06/22/24 15:19 WBC 7.9 RBC 4.56 Hgb 13.3 Hct 40.6 MCV 89.0 MCH 29.2 MCHC 32.8 RDW Std Deviation 47.2 H RDW Coeff of Wing 14.5 Plt Count 282 MPV 10.9 Immature Gran % (Auto) 0.500 Neut % (Auto) 64.8 Lymph % (Auto) 18.9 L [place] % (Auto) 13.3 H Eos % (Auto) 2.2 Baso % (Auto) 0.3 Absolute Neuts (auto) 5.1 Absolute Lymphs (auto) 1.49 Nucleated RBC % 0 Sodium 134 L Potassium 3.2 L Chloride 96 L Carbon Dioxide 28.0 Anion Gap 10 BUN 18 Creatinine 1.24 H Estim Creat Clear Calc 30.76 Est GFR (MDRD) Af Amer 55 L Est GFR (MDRD) Non-Af 46 L BUN/Creatinine Ratio 14.5 Glucose 123 H Calcium 9.2 Treatment and Re-Evaluation :: I have personally performed a face to face assessment of the patient and have reviewed the ELINA Note. I performed a substantive portion of the visit including all aspects of the following. My nunn findings include: History: Patient presents with weakness and fatigue. Has been getting worse over the past few days. Patient states she was recently diagnosed with influenza a is an urgent care. Patient states she has been having a fever up to 101 at home. Patient admits to a cough. Patient denies any sputum production. Patient denies any nausea or vomiting. Patient states she has been having some diarrhea. Patient states her diarrhea is watery. Patient denies any melena or hematochezia. Patient is concerned that she is dehydrated. Exam: Vital signs are stable. Patient is afebrile. Patient is in no acute distress. Oral mucosa is pink and moist. Neck is supple. Trachea is midline. There is no JVD. Heart was regular rate and rhythm. Lungs are clear and equal bilaterally. Abdomen is soft. Bowel sounds are normal. There is no tenderness. There is no rebound or guarding noted. Cranial nerves II through XII are intact. There are no focal motor or sensory deficits noted. Medical Decision Making: Differential diagnosis includes dehydration, viral illness, electrolyte abnormality, and dehydration. CBC will be obtained to assess for leukocytosis and anemia. Basic metabolic profile will be obtained to assess for electrolyte abnormality and renal function. Patient was given IV fluids. CBC was reviewed and was essentially within normal limits. Basic metabolic profile was reviewed. Potassium was slightly low at 3.2. Chloride was slightly low at 134 and chloride was 96. Creatinine was slightly elevated at 1.24. This is somewhat increased from previous result. Patient was given a dose of oral potassium here. Patient was advised of her findings. Patient is feeling better on reevaluation. Patient was instructed to drink plenty of fluids. Patient was instructed to follow-up with her primary care physician in 5 to 7 days. Patient was instructed to return if worse in any way. Patient understood and was agreeable with the plan. All questions were answered. Discharge Plan Triage Chief Complaint: Nausea/Vomiting/Diarrhea ED Midlevel Provider: Elizabeth Frederick ED Provider: John Hodge Dx/Rx/DC Orders Clinical Impression: Diarrhea, Influenza A, Dehydration Instructions: Dehydration, ED Diarrhea, Unknown Cause Prescriptions: No Action multivitamin tablet 1 tab PO QAM mecobalamin (vitamin B12) 5,000 mcg tablet,disintegrating 5,000 mcg PO DAILY cholecalciferol (vitamin D3) 2,000 unit capsule 2,000 unit PO QDAY Ferretts Carbonyl Iron 18 mg iron tablet,chewable 18 mg PO DAILY biotin 2,500 mcg capsule 2,500 mcg PO DAILY Caltrate 600 plus D 600 mg (1,500 mg)-800 unit tablet,chewable 1 tab PO DAILY adalimumab 40MG/0. pen injector kit 40 mg subcut QWEEK ondansetron 4 mg tablet,disintegrating 4 mg PO Q8H PRN PRN (Reason: Nausea) Qty: 10 0RF Primary Care Provider: Porfirio Donato Referrals: Porfirio Donato MD [Primary Care Provider] - 3-5 Days Activity Restrictions/Additional Instructions: Stay well-hydrated, return for any worsening of your symptoms. Print Language: Upper Sorbian Disposition Disposition: Home, Self Care Discharge Date/Time: 06/22/24 17:51
[2024-06-22 15:50] LABS: Anion Gap 10 (5-15); BUN 18 mg/dL (7-18); BUN/Creat Ratio 14.5 RATIO (10-20); Calcium,Total 9.2 mg/dL (8.5-10.1); Chloride 96 mmol/L (98-107); Creatinine, Serum 1.24 mg/dL (0.55-1.02); EST Glomerular Filtration Rate 46 mL/min (>60); Est Glom Filt Rate - Afr Amer 55 mL/min (>60); Estimated Creatinine Clearance 30.76 ml/min; Glucose 123 mg/dL (74-106); Potassium 3.2 mmol/L (3.5-5.1); Sodium Level 134 mmol/L (136-145)
[2024-06-22] MEDS: Potassium Chloride Oral Tablet 20 MEQ 40 MEQ PO (16:14)
[2024-06-22 16:41] VITALS: PULSE 70; RESP 18; TEMP 36.8; O2SAT 97
[2024-06-22] MEDS: Potassium Chloride Oral Soln 20 MEQ/15 ML UDC 40 MEQ PO (16:41)
[2024-06-22 17:24] VITALS: PULSE 70; RESP 18; TEMP 36.8; O2SAT 97
== END 2024-06-22 17:51 | disposition home or self-care (01) ==
PROVIDERS: Physician Assistant; Emergency Provider Emergency Medicine; PCP Family Medicine; Visit Provider Emergency Medicine
DX: R19.7 Diarrhea, unspecified (principal); J10.1 Influenza due to other identified influenza virus with other respiratory manifestations; E86.0 Dehydration; R11.2 Nausea with vomiting, unspecified
CPT/HCPCS: 80048; 85025; 96360; 96361; 99282; A4216

== ENCOUNTER → 2024-07-03 | Outpatient (CLI) | payer MEDICARE, SELFPAY ==
[2024-07-03 18:11] LABS: Absolute Lymphocyte Count 1.81 X10^3/uL (0.83-4.51); Absolute Neutrophil Count 3.1 X10^3/uL (2.0-7.7); Basophil# 0.01 X10^3/uL; Basophil% 0.2 % (0-1); Eosinophil# 0.02 X10^3/uL; Eosinophils% 0.4 % (0-5); Hematocrit 38.6 % (37-47); Hemoglobin 12.6 g/dL (12.0-15.0); Lymphocyte # 1.81 X10^3/ul (0.83-4.51); Lymphocyte % 32.5 % (19-41); Mean Corp Hgb Conc 32.6 g/dL (32-36); Mean Corpuscular Hgb 28.6 pg (27.0-32.0); Mean Corpuscular Volume 87.7 fL (81-99); Monocyte# 0.59 X10^3/uL; Monocyte% 10.6 % (0-10); NRBC Flagged by Analyzer 0 % (0-5); Neutrophil # 3.13 X10^3/uL (2.7-7.7); Neutrophil % 56.1 % (47-70); Platelet Count 625 K/mm3 (150-450); RBC Distribution Width CV 14.1 % (11.6-14.6); RBC Distribution Width SD 45.6 fl (35.1-43.9); White Blood Count 5.6 K/mm3 (4.4-11.0)
[2024-07-03 18:41] LABS: ALB/GLOB Ratio 0.5 RATIO (0.9-2.4); AST(SGOT) 22 U/L (15-37); Alanine Aminotransfer ALT/SGPT 18 U/L (13-56); Albumin, Serum 2.8 g/dL (3.2-5.0); Alkaline Phosphatase 59 U/L (45-117); Anion Gap 8 (5-15); BUN 18 mg/dL (7-18); BUN/Creat Ratio 16.5 RATIO (10-20); Calcium,Total 9.6 mg/dL (8.5-10.1); Chloride 99 mmol/L (98-107); Cholesterol 154 mg/dL (200); Creatinine, Serum 1.09 mg/dL (0.55-1.02); EST Glomerular Filtration Rate 53 mL/min (>60); Est Glom Filt Rate - Afr Amer 64 mL/min (>60); Globulin 5.5 g/dL (2.2-4.2); Glucose 112 mg/dL (74-106); High Density Lipoprotein 50 mg/dL; Iron 68 ug/dL (50-170); Potassium 3.2 mmol/L (3.5-5.1); Protein, Total 8.3 g/dL (6.4-8.2); Sodium Level 136 mmol/L (136-145); T4 Free Direct 1.52 ng/dL (0.76-1.46); Triglycerides 86 mg/dL; Very Low Density Lipoprotein 17 mg/dL (5-40)
[2024-07-03 18:42] LABS: Vitamin B12 > 2000 pg/mL (211-911); Vitamin D,25 Hydroxy 83.9 ng/mL
[2024-07-03 19:44] LABS: Hemoglobin A1c 6.5 % (3.8-5.6)
== END | disposition home or self-care (01) ==
LOC: MFPLAB 16:23
PROVIDERS: PCP Family Medicine; Referring Provider Family Medicine; Visit Provider Family Medicine
DX: E53.9 Vitamin B deficiency, unspecified (principal); K51.90 Ulcerative colitis, unspecified, without complications; E06.3 Autoimmune thyroiditis; M81.0 Age-related osteoporosis without current pathological fracture; R73.02 Impaired glucose tolerance (oral)
CPT/HCPCS: 36415; 80053; 80061; 82306; 82607; 83036; 83540; 84439; 84443; 85025

== ENCOUNTER → 2024-07-10 | Outpatient (CLI) | payer MEDICARE, SELFPAY ==
[2024-07-10 18:44] LABS: Anion Gap 6 (5-15); BUN 19 mg/dL (7-18); Calcium,Total 9.5 mg/dL (8.5-10.1); Chloride 104 mmol/L (98-107); EST Glomerular Filtration Rate 58 mL/min (>60); Est Glom Filt Rate - Afr Amer 71 mL/min (>60); Glucose 96 mg/dL (74-106); Potassium 4.3 mmol/L (3.5-5.1); Sodium Level 137 mmol/L (136-145)
== END | disposition home or self-care (01) ==
LOC: MFPLAB 13:48
PROVIDERS: PCP Family Medicine; Referring Provider Family Medicine; Visit Provider Family Medicine
DX: R94.4 Abnormal results of kidney function studies (principal)

== ENCOUNTER → 2024-07-25 | Outpatient (CLI) | payer MEDICARE, SELFPAY ==
[2024-07-25 18:35] LABS: ALB/GLOB Ratio 0.7 RATIO (0.9-2.4); AST(SGOT) 19 U/L (15-37); Alanine Aminotransfer ALT/SGPT 17 U/L (13-56); Albumin, Serum 3.2 g/dL (3.2-5.0); Alkaline Phosphatase 67 U/L (45-117); Anion Gap 6 (5-15); BUN 18 mg/dL (7-18); BUN/Creat Ratio 19.4 RATIO (10-20); Calcium,Total 9.3 mg/dL (8.5-10.1); Chloride 106 mmol/L (98-107); Creatinine, Serum 0.93 mg/dL (0.55-1.02); EST Glomerular Filtration Rate 64 mL/min (>60); Est Glom Filt Rate - Afr Amer 77 mL/min (>60); Globulin 4.4 g/dL (2.2-4.2); Glucose 110 mg/dL (74-106); Protein, Total 7.6 g/dL (6.4-8.2); Sodium Level 140 mmol/L (136-145)
== END | disposition home or self-care (01) ==
LOC: MFPLAB 15:16
PROVIDERS: PCP Family Medicine; Visit Provider Family Medicine
DX: R94.4 Abnormal results of kidney function studies (principal)
CPT/HCPCS: 36415; 80053

== ENCOUNTER 2024-10-14 14:00 | Outpatient (RCR) | payer MEDICARE, SELFPAY ==
--- NOTE | 2024-09-16 14:56 | HP.PTEVAL_ITS ---
Patient's Visit Information Visit Information Visit Information: JERSON MURPHY is a 68 year old F referred to Physical Therapy by ROWAN Sheikh with a diagnosis of R biceps tendon injury. Date of Evaluation: 09/16/24 Physical Therapist: Gallo Levine, PT, ATC Visit Plan Frequency: 2x /Week Duration: 2-4 Weeks Plan: STM to R biceps, stick rollout, hawks agricultural equipment operator fanning, R elbow flexion strengthening, and HEP Subjective Subjective: Pt reports she woke up 3 weeks ago with R biceps pain. Pt reports her pain had an insidious onset in nature. Pt reports she has had an xray of her R arm which revealed no significant findings. Pt [place], and is now very limited with all of the chores she needs to do on a daily basis. Pt is R hand dominant. Pt reports she is limited with all lifting activity of her R UE. Pt denies sleep difficulty at this time secondary to pain. Pt reports she is also limited with all house chores secondary to pain. 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 Pt denies any tingling or numbness in R UE at this time. Pt lives with her cousin. 2/10 pain while sitting here at rest, 6/10 pain at worst. Pain R biceps: Pain Intensity (Out of 10): 2 Pain Intensity Range: 6 Objective Objective: Neuro: B UE sensation is WNL to light touch. B bicipital reflex= 2/3 Palpation: R bicep muscle is much more guarded than L . Mahesh deformity present in R UE. ROM: B UE's are equal when compared bilaterally Strength: L elbow flex= 23, extension= 17 #F; R elbow flex= 10, ext= 17 #F Balance/Special Test Scores Quick DASH Score: 34.0900 Goals Goal 1:: Decrease R UE pain x 50% to aid with IADL's Goal Time Frame: 2-4 Weeks Goal 2:: Increase R elbow flexion strength x 5 #F to aid with farm chores Goal Time Frame: 2-4 Weeks Goal 3:: I with HEP Goal Time Frame: 2-4 Weeks Rehabilitation Potential Physical Therapy Diagnosis: Pt has R UE pain, weakness, and limited ability to perform farm chores secondary to biceps tendon strain Rehabilitation Potential: Good Anticipated Interventions Patient/Client Instruction: Educate patient on: Condition and Plan of Care For the Purpose of:: To improve self management Therapeutic Exercise to Include: Strength training, Flexibilty training and Active ROM For the Purpose of:: To decrease pain, To improve muscle performance and motor function and To improve ability to perform ADL's Manual Therapy Techniques to Include: Soft tissue mobilization For the Purpose of:: To decrease pain and To improve muscle performance and motor function Text: Thank you for the opportunity to evaluate your patient. For Medicare and Medicare HMO plans, please review the plan of care and approve it. It will need to be FAXED BACK to us at [phone] for Medicare purposes. For Medicare only, by signing this I certify the plan of care. Please let me know if there are questions or concerns regarding this plan of care. Physician Signature: Date:
--- NOTE | 2024-10-14 15:11 | HP.PTDCSUM ---
Discharge Summary D/C summary: It has been my pleasure to treat JERSON MURPHY referred by ROWAN Sheikh, with the diagnosis of R biceps tendon injury for a total of 9 visit(s). Discharge Date: Please see the following information for a summary of their discharge status. Subjective Subjective: Pt reports she still has pain in her R biceps. Pain R biceps: Pain Intensity (Out of 10): 2 Overall Improvement % Improvement: 95 Objective Objective/Function: R biceps pain is 2/10 R elbow flexion MMT: 21 #F Pt is I with HEP Rx goals achieved Goals Goal 1:: Decrease R UE pain x 50% to aid with IADL's Goal 2:: Increase R elbow flexion strength x 5 #F to aid with farm chores Goal 3:: I with HEP Plan Plan: Discharge to HEP D/C Information d/c sentence: If there are questions or concerns regarding this patient's physical therapy, please feel free to call me at [phone]. Thank you for the referral of this patient. Sincerely, Gallo Levine, PT, ATC Balance/Gait/Functional tests Balance/Special Test Scores Quick DASH Score: 18.1800 Improvement % Improvement: 95
== END 2024-10-14 19:00 | disposition home or self-care (01) ==
LOC: PT 14:00
PROVIDERS: PCP Family Medicine; Referring Provider Physician Assistant; Visit Provider Physician Assistant
DX: S46.191D Other injury of muscle, fascia and tendon of long head of biceps, right arm, subsequent encounter (principal); M79.601 Pain in right arm
CPT/HCPCS: 97110; 97140; 97161; 97530

== ENCOUNTER → 2024-10-29 | Outpatient (CLI) | payer MEDICARE, SELFPAY ==
[2024-10-29 17:51] LABS: Absolute Neutrophil Count 4.2 X10^3/uL (2.0-7.7); Basophil# 0.04 X10^3/uL; Basophil% 0.5 % (0-1); Eosinophil# 0.15 X10^3/uL; Eosinophils% 1.7 % (0-5); Hematocrit 38.1 % (37-47); Hemoglobin 12.4 g/dL (12.0-15.0); Lymphocyte % 40.3 % (19-41); Mean Corp Hgb Conc 32.5 g/dL (32-36); Mean Platelet Vol. 11.4 fl (6.2-12.0); Monocyte# 0.79 X10^3/uL; Monocyte% 9.1 % (0-10); NRBC Flagged by Analyzer 0 % (0-5); Neutrophil # 4.18 X10^3/uL (2.7-7.7); Neutrophil % 48.2 % (47-70); Platelet Count 383 K/mm3 (150-450); RBC Distribution Width CV 14.3 % (11.6-14.6); RBC Distribution Width SD 46.3 fl (35.1-43.9); Red Blood Count 4.28 M/mm3 (4.2-5.4); White Blood Count 8.7 K/mm3 (4.4-11.0)
[2024-10-29 18:50] LABS: Hemoglobin A1c 6.2 % (<=5.6)
[2024-10-29 19:06] LABS: AST(SGOT) 21 U/L (<=31); Alanine Aminotransfer ALT/SGPT 8 U/L (<=34); Alkaline Phosphatase 76 U/L (35-104); Anion Gap 11 (5-15); BUN 13 mg/dL (4-19); BUN/Creat Ratio 13.1 RATIO (10-20); Calcium,Total 9.4 mg/dL (7.6-11.0); Carbon Dioxide 27.3 mmol/L (21.0-32.0); Chloride 103 mmol/L (98-108); Creatinine, Serum 0.95 mg/dL (0.70-1.20); EST Glomerular Filtration Rate 64 (>60); Globulin 4.2 g/dL (2.2-4.2); Glucose 103 mg/dL (70-99); Potassium 3.5 mmol/L (3.3-5.1); Protein, Total 8.1 g/dL (5.9-8.4); Sodium Level 142 mmol/L (133-145); Total Bilirubin 0.53 mg/dL (0.00-1.30)
[2024-10-29 19:55] LABS: Iron 81 ug/dL (50-170); Magnesium 2.2 mg/dL (1.5-2.2)
[2024-10-29 19:57] LABS: Vitamin B12 > 4000 pg/mL (180-914); Vitamin D,25 Hydroxy 59.5 ng/mL (30-100)
[2024-10-29 21:55] LABS: Microalbumin:Creatinine Ratio 1301.5 mg/g CRE
== END | disposition home or self-care (01) ==
LOC: MFPLAB 15:52
PROVIDERS: PCP Family Medicine; Referring Provider Family Medicine; Visit Provider Family Medicine
DX: K51.90 Ulcerative colitis, unspecified, without complications (principal); E11.8 Type 2 diabetes mellitus with unspecified complications; M81.0 Age-related osteoporosis without current pathological fracture; E06.3 Autoimmune thyroiditis
CPT/HCPCS: 36415; 80053; 82043; 82306; 82570; 82607; 83036; 83540; 83735; 84439; 84443; 85025

== ENCOUNTER → 2025-05-13 | Outpatient (CLI) | payer MEDICARE, SELFPAY ==
[2025-05-13 15:55] LABS: Mucous, Urine 0 SEEN /hpf (<or=2+); Red Blood Cells-Urine 0 SEEN /hpf (0-5)
[2025-05-13 17:40] LABS: Hematocrit 38.6 % (37-47); Hemoglobin 12.4 g/dL (12.0-15.0); Immature Granulocytes Count 0.010 X10^3/uL (0.0-0.0); Mean Corp Hgb Conc 32.1 g/dL (32-36); Mean Corpuscular Volume 89.1 fL (81-99); Mean Platelet Vol. 10.9 fl (6.2-12.0); NRBC Flagged by Analyzer 0 % (0-5); Platelet Count 364 K/mm3 (150-450); RBC Distribution Width CV 14.6 % (11.6-14.6); RBC Distribution Width SD 48.1 fl (35.1-43.9); Red Blood Count 4.33 M/mm3 (4.2-5.4); White Blood Count 8.6 K/mm3 (4.4-11.0)
[2025-05-13 18:06] LABS: Color, Urine Yellow (Yellow); Glucose, Dipstick Normal (Normal); Ketone-Dipstick Negative (Negative); Leukocyte Esterase-Dipstick 100 /ul (Negative); Nitrite-Dipstick Negative (Negative); Occult Blood-Urine 50 /ul (Negative); Protein-Dipstick 30 mg/dl (Negative); Specific Gravity, Urine 1.030 (1.002-1.030); Urine Bilirubin Dipstick Negative (Negative)
[2025-05-13 18:34] LABS: Creatinine, Urine (random) 323.00 mg/dL (28.00-217.00); Microalbumin,Random Urine 45.0 mg/L (<20 mg/L)
[2025-05-13 18:44] LABS: Calcium Oxalate Crystals Ur 2+ /hpf (<or=2+); Squamous Epithelial Cells - UA 0-5 SEEN /hpf (5-10)
[2025-05-13 18:59] LABS: AST(SGOT) 25 U/L (<=31); Alanine Aminotransfer ALT/SGPT 10 U/L (<=34); Albumin, Serum 4.2 g/dL (3.4-4.8); Alkaline Phosphatase 71 U/L (35-104); Anion Gap 15 (5-15); BUN 17 mg/dL (4-19); BUN/Creat Ratio 15.4 RATIO (10-20); Calcium,Total 9.9 mg/dL (7.6-11.0); Carbon Dioxide 25.5 mmol/L (21.0-32.0); Chloride 100 mmol/L (98-108); Cholesterol 236 mg/dL (<=200); Globulin 4.2 g/dL (2.2-4.2); Glucose 93 mg/dL (70-99); Low Density Lipoprotein Calc. 124 mg/dL; Potassium 3.4 mmol/L (3.3-5.1); Triglycerides 122 mg/dL; Very Low Density Lipoprotein 24 mg/dL (5-40); Vitamin D,25 Hydroxy 61.1 ng/mL (30-100); cholesterol:hdl ratio screen 2.60
[2025-05-17 18:08] LABS: Vitamin B1, Thiamine 79.9 nmol/L (66.5-200.0)
== END | disposition home or self-care (01) ==
LOC: MTLAB 15:49
PROVIDERS: PCP Family Medicine; Referring Provider Family Medicine; Visit Provider Family Medicine
DX: E11.8 Type 2 diabetes mellitus with unspecified complications (principal); E55.9 Vitamin D deficiency, unspecified
CPT/HCPCS: 36415; 80053; 80061; 81001; 82043; 82306; 82570; 83036; 84100; 84425; 85025

== ENCOUNTER → 2025-06-04 | Outpatient (CLI) | payer MEDICARE, SELFPAY ==
--- NOTE | 2025-06-04 13:17 | US_ITS ---
PROCEDURE: THYROID 06/04/2025 REASON FOR EXAM: NODULE, COMPARE TO PREVIOUS TECHNIQUE: Procedure Code: USTHY Modality: US Procedure: THYROID COMPARISON: Multiple prior studies available for comparison the most recent 1 dated 05/24/2023. FINDINGS: Right thyroid lobe size: 5.6 x 1.7 x 1.7 cm Left thyroid lobe size: 4.8 x 1.4 x 1.3 cm Isthmus: 0.2 cm Background parenchymal echotexture is homogeneous. Nodules: 1. Lobe: Right, Location: Mid, Size: 0.3 cm, Stability: Smaller Composition: Solid or almost completely solid (+2) Echogenicity: Anechoic (+0) Margin: Ill-defined (+0) Shape: Wider than tall (+0) Echogenic Foci: Peripheral calcification (+2) TI-RADS: 4 2. Lobe: Right, Location: Lower, Size: 1.0 x 0.8 x 0.6 cm, Stability: Stable Composition: Solid or almost completely solid (+2) Echogenicity: Hyper to Isoechoic (+1) Margin: Smooth (+0) Shape: Wider than tall (+0) Echogenic Foci: None (+0) TI-RADS: 3 3. Lobe: Right, Location: Mid, Size: 1.5 x 1.3 x 1.0 cm, Stability: Smaller Composition: Mixed cystic and solid (+1) Echogenicity: Anechoic (+0) Margin: Smooth (+0) Shape: Wider than tall (+0) Echogenic Foci: None (+0) TI-RADS: 1 US/Thyroid IMPRESSION: Bilateral thyroid nodules most of which have decreased in size since previous e xam with the exception of a peripherally calcified small 3 mm nodule in the right lobe. Stability over time is reassuring. RECOMMENDATION: No imaging follow-up recommended Reading Location: [id number]
== END | disposition home or self-care (01) ==
PROVIDERS: PCP Family Medicine; Referring Provider Family Medicine; Visit Provider Family Medicine
DX: E04.1 Nontoxic single thyroid nodule (principal)
CPT/HCPCS: 76536